=== PATIENT | male | born 1960 | race African-American/Black ===

== ENCOUNTER 2023-05-17 18:35 | Inpatient (IN) | payer OTHER ==
[~2023-05-17] VITALS: Ht 182.9 cm; Wt 127.6 kg
[~2023-05-17 18:35] MED LIST: ASCO500C18 PO; ENZA40CA PO; FERR325T6 PO; FINA-37 PO; FOLI20CA PO; GABA300C PO; HYDR-4001 PO; IBUP-1653 PO; IBUP-2437 PO; MEGE40TA33 PO; MORP15TA54 PO; POTA15TA11 PO; SENN-257 PO; VITA1CAP16 PO
[2023-05-17] MEDS ORDERED: ACETAMINOPHEN 325MG TABLET PO STA (19:39)
[2023-05-17] MEDS ORDERED: CEFTRIAXONE 1GM PREMIX 50 ML IV ONE (19:45)
[2023-05-17 22:13] LABS: HEMATOCRIT. 30.7 % (42.0-52.0); HEMOGLOBIN. 10.2 g/dL (14.0-18.0); MEAN CORPUSCULAR HGB CONC 33.2 g/dL (31.0-37.0); MEAN CORPUSCULAR VOLUME 90.5 fL (80.0-94.0); MEAN PLATELET VOLUME 7.3 fl (7.4-10.4); PLATELET 417 x1000/uL (130-400); RED BLOOD CELL COUNT 3.39 mill/uL (4.7-6.1); RED CELL DISTRIBUTION WIDTH 21.2 % (11.6-14.6); WHITE BLOOD COUNT 9.6 x1000/uL (4.5-11.0)
[2023-05-17 22:19] LABS: DIFFERENTIAL COMMENT 1
[2023-05-17 22:21] LABS: INR 1.1
[2023-05-17 22:35] LABS: PLATELET ESTIMATE INCREASED
[2023-05-17 22:36] LABS: ANISOCYTOSIS 2+
[2023-05-17 22:39] LABS: LACTIC ACID 2.4 mmol/L (0.4-2.0)
[2023-05-17 22:42] LABS: ALANINE AMINOTRANSFERASE 105 IU/L (10-49); ALBUMIN 3.3 g/dL (3.2-4.8); ASPARTATE AMINOTRANSFERASE 240 IU/L (<34); BILIRUBIN TOTAL 27.2 mg/dL (0.1-1.0); CALCIUM 8.5 mg/dL (8.7-10.4); CARBON DIOXIDE 13 mEq/L (21-32); CHLORIDE 101 mEq/L (98-107); GLUCOSE 82 mg/dL (70-105); POTASSIUM 4.6 mEq/L (3.5-5.1); PROTEIN TOTAL 7.9 g/dL (6.0-8.3); SODIUM 136 mEq/L (136-145); TROPONIN I HIGH SENSITIVITY 38 ng/L (3.0-53); UREA NITROGEN BLOOD 79 mg/dL (9-23)
[2023-05-17 22:49] LABS: CREATININE 7.6 mg/dL (0.6-1.3)
[2023-05-17] MEDS: SODIUM CHLORIDE 0.9% 1,000 ML IV ONE (23:41)
[2023-05-17] MEDS: MORPHINE SULFATE 4 MG/ML CPJ (NOT FOR IM USE) IV ONE (23:57)
[2023-05-18] MEDS: CEFTRIAXONE 2GM/50ML (ADDEASE) 50 ML IV ONE (00:43)
[2023-05-18] MEDS: ALBUMIN HUMAN 25GM/100ML (25%) IV ONE (00:51)
[2023-05-18 19:30] VITALS: BP 109/68; PULSE 75; RESP 18; TEMP 97.4
[2023-05-18] MEDS ORDERED: CLONIDINE 0.1MG TABLET PO PRN (19:30)
[2023-05-18] MEDS ORDERED: IPRATROPIUM/ALBUTEROL 0.5-3(2.5)MG/3ML NEB HHN PRN (19:30)
[2023-05-18] MEDS ORDERED: DOCUSATE SODIUM 100MG CAPSULE PO PRN (19:30)
[2023-05-18] MEDS: SODIUM CHLORIDE 0.9% 1,000 ML IV SCH (20:38)
[2023-05-18 21:37] LABS: BG BASE EXCESS -12.6 mmol/L (-2.0-2.0); BG CARBOXYHEMOGLOBIN 0.8 % (0.5-1.5); BG DEOXYHEMOGLOBIN 3.4 % (0.0-5.0); BG FRACTION INSPIRED OXYGEN 21; BG HCO3 ACT 12.6 mmol/L (22.0-26.0); BG METHEMOGLOBIN 0.1 % (0.0-1.5); BG OXYGEN SATURATION 96.6 % (92.0-98.5); BG OXYHEMOGLOBIN 95.7 % (94.0-97.0); BG PCO2 26.9 mmHg (35.0-45.0); BG PH 7.287 (7.350-7.450); BG PO2 94.3 mmHg (75.0-100.0); BG SAMPLE SITE LEFT BRACHIAL; BG TOTAL HEMOGLOBIN 10.4 g/dL (12.0-18.0); BG VENT MODE ROOM AIR
[2023-05-18] MEDS: MORPHINE SULFATE 2 MG/ML CPJ (NOT FOR IM USE) IV PRN (22:14)
[2023-05-19] VITALS (48 sets, daily range): BP systolic 60–132; BP diastolic 27–95; PULSE 70–89; RESP 11–19; TEMP 96
[2023-05-19 08:11] LABS: BILIRUBIN DIRECT 21.7 mg/dL (<=3.0)
[2023-05-19] MEDS ORDERED: NOREPINEPHRINE 8 MG in DEXT 5% WATER 242 ML IV PRN (09:00)
[2023-05-19] MEDS ORDERED: HYDROCODONE/ACETAMINOPHEN 5/325MG TABLET PO PRN (09:00)
[2023-05-19] MEDS ORDERED: NALOXONE HCL 0.4MG/ML VIAL IV PRN (09:00)
[2023-05-19 10:33] LABS: CREATINE KINASE 232 IU/L (46-171)
[2023-05-19] MEDS: PIPERACILLIN/TAZO 3.375G/50ML 50 ML IV SCH (10:35)
[2023-05-19] MEDS: NOREPINEPHRINE 8MG/250ML PMX 250 ML IV PRN (12:25)
[2023-05-19] MEDS: SODIUM BICARBONATE 100 MEQ in DEXTROSE 5% WATER 1,000 ML IV SCH (12:25)
[2023-05-19] MEDS: VANCOMYCIN 1,750 MG in DEXT 5% WATER 500 ML IV NR (12:26)
[2023-05-19] MEDS: SODIUM BICARBONATE 8.4% 1 MEQ/ML 50ML SYR IV NR (12:31)
[2023-05-19 12:37] LABS: HEMATOCRIT. 26.3 % (42.0-52.0); HEMOGLOBIN. 8.8 g/dL (14.0-18.0); MEAN CORPUSCULAR HEMOGLOBIN 29.9 pg (28.0-32.0); MEAN CORPUSCULAR HGB CONC 33.5 g/dL (31.0-37.0); MEAN CORPUSCULAR VOLUME 89.3 fL (80.0-94.0); MEAN PLATELET VOLUME 7.9 fl (7.4-10.4); PLATELET 333 x1000/uL (130-400); RED BLOOD CELL COUNT 2.95 mill/uL (4.7-6.1); RED CELL DISTRIBUTION WIDTH 21.3 % (11.6-14.6); WHITE BLOOD COUNT 6.5 x1000/uL (4.5-11.0)
[2023-05-19 12:38] LABS: DIFFERENTIAL COMMENT 1
[2023-05-19] MEDS: ALBUMIN HUMAN 25GM/100ML (25%) IV NR (12:46)
[2023-05-19] MEDS: OCTREOTIDE 1,000 MCG in SODIUM CHLORIDE 0.9% 98 ML IV SCH (14:07)
[2023-05-19 15:34] LABS: ALANINE AMINOTRANSFERASE 57 IU/L (10-49); ALBUMIN 3.5 g/dL (3.2-4.8); ASPARTATE AMINOTRANSFERASE 125 IU/L (<34); BILIRUBIN TOTAL 26.4 mg/dL (0.1-1.0); CALCIUM 8.2 mg/dL (8.7-10.4); CHLORIDE 107 mEq/L (98-107); GLUCOSE 66 mg/dL (70-105); POTASSIUM 4.4 mEq/L (3.5-5.1); PROTEIN TOTAL 7.1 g/dL (6.0-8.3); SODIUM 137 mEq/L (136-145); UREA NITROGEN BLOOD 84 mg/dL (9-23)
[2023-05-19 15:37] LABS: CARBON DIOXIDE < 10 mEq/L (21-32); CREATININE 7.9 mg/dL (0.6-1.3)
[2023-05-19 17:03] LABS: BG BASE EXCESS -12.5 mmol/L (-2.0-2.0); BG CARBOXYHEMOGLOBIN 1.1 % (0.5-1.5); BG DEOXYHEMOGLOBIN 3.9 % (0.0-5.0); BG FRACTION INSPIRED OXYGEN 21; BG HCO3 ACT 12.5 mmol/L (22.0-26.0); BG METHEMOGLOBIN 0.3 % (0.0-1.5); BG OXYHEMOGLOBIN 94.7 % (94.0-97.0); BG PH 7.301 (7.350-7.450); BG PO2 90.1 mmHg (75.0-100.0); BG SAMPLE SITE RIGHT RADIAL; BG TOTAL HEMOGLOBIN 9.3 g/dL (12.0-18.0); BG VENT MODE ROOM AIR
[2023-05-19] MEDS: ALBUMIN HUMAN 25GM/100ML (25%) IV SCH (17:24)
[2023-05-19 19:31] LABS: PLATELET ESTIMATE NORMAL
[2023-05-20] VITALS (107 sets, daily range): BP systolic 71–126; BP diastolic 54–96; PULSE 83–116; RESP 16–34; TEMP 96–99
[2023-05-20 05:15] LABS: AMMONIA 91 uMol/L (<32)
[2023-05-20 05:25] LABS: HEMATOCRIT. 24.3 % (42.0-52.0); HEMOGLOBIN. 7.9 g/dL (14.0-18.0); MEAN CORPUSCULAR HEMOGLOBIN 29.4 pg (28.0-32.0); MEAN CORPUSCULAR HGB CONC 32.7 g/dL (31.0-37.0); MEAN CORPUSCULAR VOLUME 89.8 fL (80.0-94.0); MEAN PLATELET VOLUME 7.9 fl (7.4-10.4); PLATELET 322 x1000/uL (130-400); RED CELL DISTRIBUTION WIDTH 20.6 % (11.6-14.6); WHITE BLOOD COUNT 6.4 x1000/uL (4.5-11.0)
[2023-05-20 05:36] LABS: DIFFERENTIAL COMMENT 1
[2023-05-20 06:20] LABS: ALANINE AMINOTRANSFERASE 48 IU/L (10-49); ASPARTATE AMINOTRANSFERASE 122 IU/L (<34); BILIRUBIN TOTAL 26.9 mg/dL (0.1-1.0); CALCIUM 7.8 mg/dL (8.7-10.4); CARBON DIOXIDE 14 mEq/L (21-32); CHLORIDE 102 mEq/L (98-107); GLUCOSE 115 mg/dL (70-105); POTASSIUM 3.9 mEq/L (3.5-5.1); PROTEIN TOTAL 7.3 g/dL (6.0-8.3); SODIUM 140 mEq/L (136-145); UREA NITROGEN BLOOD 82 mg/dL (9-23)
[2023-05-20 06:35] LABS: CREATININE 7.8 mg/dL (0.6-1.3)
[2023-05-20 07:55] LABS: BG BASE EXCESS -9.3 mmol/L (-2.0-2.0); BG CARBOXYHEMOGLOBIN 1.3 % (0.5-1.5); BG DEOXYHEMOGLOBIN 6.3 % (0.0-5.0); BG FRACTION INSPIRED OXYGEN 21; BG HCO3 ACT 13.9 mmol/L (22.0-26.0); BG METHEMOGLOBIN 0.3 % (0.0-1.5); BG OXYGEN SATURATION 93.6 % (92.0-98.5); BG OXYHEMOGLOBIN 92.1 % (94.0-97.0); BG PCO2 22.2 mmHg (35.0-45.0); BG PH 7.414 (7.350-7.450); BG PO2 70.5 mmHg (75.0-100.0); BG SAMPLE SITE RIGHT BRACHIAL; BG TOTAL HEMOGLOBIN 8.7 g/dL (12.0-18.0); BG VENT MODE ROOM AIR
[2023-05-20] MEDS ORDERED: PHENYLEPHRINE 50 MG in DEXT 5% WATER 245 ML IV PRN (08:30)
[2023-05-20] MEDS: ALBUMIN HUMAN 12.5GM/50ML (25%) IV NR (08:54)
[2023-05-20] MEDS: SODIUM BICARBONATE 150 MEQ in DEXTROSE 5% WATER 1,000 ML IV SCH (08:55)
[2023-05-20 09:10] LABS: COMPLEMENT C3 137 mg/dL (82-167); COMPLEMENT C4 62 mg/dL (12-38)
[2023-05-20] MEDS: PROPOFOL 10MG/ML 100ML 100 ML IV PRN (09:28)
[2023-05-20 09:45] LABS: AMMONIA 104 uMol/L (<32)
[2023-05-20 10:00] LABS: BG BASE EXCESS -9.6 mmol/L (-2.0-2.0); BG CARBOXYHEMOGLOBIN 1.8 % (0.5-1.5); BG DEOXYHEMOGLOBIN 0.3 % (0.0-5.0); BG FRACTION INSPIRED OXYGEN 100; BG HCO3 ACT 14.3 mmol/L (22.0-26.0); BG METHEMOGLOBIN 0.3 % (0.0-1.5); BG OXYGEN SATURATION 99.7 % (92.0-98.5); BG OXYHEMOGLOBIN 97.6 % (94.0-97.0); BG PCO2 24.9 mmHg (35.0-45.0); BG PH 7.378 (7.350-7.450); BG PO2 411.8 mmHg (75.0-100.0); BG SAMPLE SITE RIGHT BRACHIAL; BG TOTAL HEMOGLOBIN 8.3 g/dL (12.0-18.0); BG VENT MODE VENT - AC
[2023-05-20] MEDS: LACTULOSE 20G/30ML UDC PO SCH (13:56)
[2023-05-20 15:43] LABS: NUCLEATED RED BLOOD CELLS 3 /100 WBC
[2023-05-20 15:44] LABS: ANISOCYTOSIS 2+; PLATELET ESTIMATE NORMAL; TARGET CELLS 1+
[2023-05-20 16:56] LABS: *AMPHETAMINES SCREEN URINE NEGATIVE (NEGATIVE); *BARBITURATES SCREEN URINE NEGATIVE (NEGATIVE); *BENZODIAZEPINES SCREEN URINE NEGATIVE (NEGATIVE); *COCAINE SCREEN URINE NEGATIVE (NEGATIVE); CANNABINOID URINE SCREEN NEGATIVE (NEGATIVE); ECSTASY MDMA SCREEN URINE NEGATIVE (NEGATIVE); METHADONE URINE SCREEN Neg (NEGATIVE); OPIATES URINE SCREEN PRESUMPTIVE POSITIVE (NEGATIVE); PHENCYCLIDINE URINE SCREEN NEGATIVE (NEGATIVE)
[2023-05-20] MEDS: IPRATROPIUM/ALBUTEROL 0.5-3(2.5)MG/3ML NEB HHN SCH (19:52)
[2023-05-21] VITALS (112 sets, daily range): BP systolic 55–120; BP diastolic 40–103; PULSE 103–133; RESP 16–31; TEMP 97.8–99; O2SAT 100
[2023-05-21] MEDS: PHENYLEPHRINE 50MG/250ML PMX IV PRN (01:48)
[2023-05-21 04:33] LABS: HEMATOCRIT. 23.3 % (42.0-52.0); HEMOGLOBIN. 7.7 g/dL (14.0-18.0); MEAN CORPUSCULAR HEMOGLOBIN 29.7 pg (28.0-32.0); MEAN CORPUSCULAR HGB CONC 33.1 g/dL (31.0-37.0); MEAN CORPUSCULAR VOLUME 89.9 fL (80.0-94.0); MEAN PLATELET VOLUME 7.8 fl (7.4-10.4); PLATELET 327 x1000/uL (130-400); RED CELL DISTRIBUTION WIDTH 21.2 % (11.6-14.6)
[2023-05-21 04:57] LABS: DIFFERENTIAL COMMENT 1
[2023-05-21 06:27] LABS: AMMONIA 118 uMol/L (<32)
[2023-05-21 07:56] LABS: CARBON DIOXIDE 13 mEq/L (21-32); CHLORIDE 101 mEq/L (98-107); GLUCOSE 122 mg/dL (70-105); POTASSIUM 3.3 mEq/L (3.5-5.1); SODIUM 141 mEq/L (136-145); UREA NITROGEN BLOOD 74 mg/dL (9-23)
[2023-05-21 07:57] LABS: ALBUMIN 3.6 g/dL (3.2-4.8); ASPARTATE AMINOTRANSFERASE 201 IU/L (<34); BILIRUBIN TOTAL 26.1 mg/dL (0.1-1.0); CREATININE 7.6 mg/dL (0.6-1.3); PROTEIN TOTAL 6.5 g/dL (6.0-8.3)
[2023-05-21 07:58] LABS: ALANINE AMINOTRANSFERASE 57 IU/L (10-49); INDEX ICTERIC 3 (1-4)
[2023-05-21 08:01] LABS: TRIGLYCERIDE 383 mg/dL (0-150)
[2023-05-21] MEDS: VASOPRESSIN 20 UNIT in SODIUM CHLORIDE 0.9% 99 ML IV PRN (08:18)
[2023-05-21] MEDS: ALBUMIN HUMAN 12.5GM/50ML (25%) IV NR (08:19)
[2023-05-21 08:26] LABS: BILIRUBIN DIRECT 20.2 mg/dL (<=3.0)
[2023-05-21 09:34] LABS: BG BASE EXCESS -9.9 mmol/L (-2.0-2.0); BG CARBOXYHEMOGLOBIN 1.3 % (0.5-1.5); BG DEOXYHEMOGLOBIN 1.3 % (0.0-5.0); BG FRACTION INSPIRED OXYGEN 40; BG METHEMOGLOBIN 0.2 % (0.0-1.5); BG OXYGEN SATURATION 98.7 % (92.0-98.5); BG OXYHEMOGLOBIN 97.2 % (94.0-97.0); BG PCO2 24.2 mmHg (35.0-45.0); BG PH 7.379 (7.350-7.450); BG PO2 134.1 mmHg (75.0-100.0); BG SAMPLE SITE RIGHT BRACHIAL; BG TOTAL HEMOGLOBIN 8.4 g/dL (12.0-18.0); BG VENT MODE VENT - AC
[2023-05-21] MEDS: VANCOMYCIN 750MG PREMIX 150 ML IV NR (11:20)
[2023-05-21] MEDS ORDERED: MIDAZOLAM HCL 2 MG/2 ML VIAL IV PRN (12:00)
[2023-05-21] MEDS: PHENYLEPHRINE 100 MG in DEXT 5% WATER 240 ML IV PRN (12:41)
[2023-05-21] MEDS: FENTANYL 2500MCG/250ML PMX 250 ML IV PRN (12:42)
[2023-05-21 13:10] LABS: ANTI-NUCLEAR ANTIBODIES DIRECT Negative (Negative)
[2023-05-21] MEDS: PANTOPRAZOLE SODIUM 40 MG/VIAL IV SCH (13:15)
[2023-05-21] MEDS: ALBUMIN HUMAN 12.5G/250ML (5%) IV NR (13:16)
[2023-05-21] MEDS: LACTULOSE 20G/30ML UDC PO SCH (14:05)
[2023-05-21 17:12] LABS: CLARITY URINE TURBID (CLEAR); COLOR URINE DARK YELLOW (YELLOW); GLUCOSE URINE TRACE (NEGATIVE); KETONES URINE NEGATIVE (NEGATIVE); LEUKOCYTE ESTERASE URINE 2+ (NEGATIVE); NITRITE URINE POSITIVE (NEGATIVE); OCCULT BLOOD URINE 2+ (NEGATIVE); PROTEIN URINE 3+ (NEGATIVE); SPECIFIC GRAVITY URINE 1.027 (1.005-1.030); UROBILINOGEN URINE 0.2 E.U./dL (0.2-1.0)
[2023-05-21] MEDS: LACTULOSE ENEMA 1,000ML BOTTLE PR SCH (18:02)
[2023-05-21] MEDS: DOXYCYCLINE 100 MG in DEXT 5% WATER 100 ML IV SCH (18:04)
[2023-05-21 19:47] LABS: RBC URINE TNTC /hpf (0-2); SQUAMOUS EPITHELIAL CELL URINE FEW /lpf (RARE/1+)
[2023-05-21 19:48] LABS: BACTERIA URINE 4+
[2023-05-21] MEDS: ENOXAPARIN 100MG/ML SYR SUBCUT SCH (20:46)
[2023-05-21 22:12] LABS: PHOSPHORUS 5.6 mg/dL (2.5-4.9); POTASSIUM 4.1 mEq/L (3.5-5.1)
[2023-05-21 22:18] LABS: TROPONIN I HIGH SENSITIVITY 5210 ng/L (3.0-53)
[2023-05-22] VITALS (101 sets, daily range): BP systolic 75–125; BP diastolic 44–86; PULSE 100–124; RESP 14–29; TEMP 96.5–99.6
[2023-05-22 06:16] LABS: HEMOGLOBIN. 7.2 g/dL (14.0-18.0); MEAN CORPUSCULAR HEMOGLOBIN 29.3 pg (28.0-32.0); MEAN CORPUSCULAR HGB CONC 31.5 g/dL (31.0-37.0); MEAN PLATELET VOLUME 8.1 fl (7.4-10.4); PLATELET 246 x1000/uL (130-400); RED BLOOD CELL COUNT 2.47 mill/uL (4.7-6.1); RED CELL DISTRIBUTION WIDTH 21.3 % (11.6-14.6)
[2023-05-22 06:27] LABS: AMMONIA 117 uMol/L (<32)
[2023-05-22 06:39] LABS: DIFFERENTIAL COMMENT 1
[2023-05-22 06:55] LABS: ALANINE AMINOTRANSFERASE 59 IU/L (10-49); ALBUMIN 3.3 g/dL (3.2-4.8); ASPARTATE AMINOTRANSFERASE 211 IU/L (<34); BILIRUBIN DIRECT 20.9 mg/dL (<=3.0); BILIRUBIN TOTAL 27.1 mg/dL (0.1-1.0); CALCIUM 6.8 mg/dL (8.7-10.4); CHLORIDE 94 mEq/L (98-107); GLUCOSE 137 mg/dL (70-105); POTASSIUM 3.5 mEq/L (3.5-5.1); PROTEIN TOTAL 6.4 g/dL (6.0-8.3); SODIUM 136 mEq/L (136-145); UREA NITROGEN BLOOD 77 mg/dL (9-23)
[2023-05-22 07:05] LABS: ANISOCYTOSIS 2+; NUCLEATED RED BLOOD CELLS 6 /100 WBC; PLATELET ESTIMATE NORMAL; TARGET CELLS 2+
[2023-05-22 07:18] LABS: CARBON DIOXIDE < 10 mEq/L (21-32)
[2023-05-22] MEDS: SODIUM BICARBONATE 8.4% 1 MEQ/ML 50ML SYR IV NR (08:07)
[2023-05-22 11:06] LABS: ANISOCYTOSIS 3+; NUCLEATED RED BLOOD CELLS 15 /100 WBC; PLATELET ESTIMATE NORMAL
[2023-05-22 11:07] LABS: TARGET CELLS 1+
[2023-05-22 12:55] LABS: INR 1.5; PROTHROMBIN TIME 15.3 sec (9.6-11.0)
[2023-05-22 14:08] LABS: BG BASE EXCESS -11.9 mmol/L (-2.0-2.0); BG CARBOXYHEMOGLOBIN 1.3 % (0.5-1.5); BG DEOXYHEMOGLOBIN 7.2 % (0.0-5.0); BG HCO3 ACT 14.2 mmol/L (22.0-26.0); BG METHEMOGLOBIN 0.3 % (0.0-1.5); BG OXYGEN SATURATION 92.7 % (92.0-98.5); BG OXYHEMOGLOBIN 91.2 % (94.0-97.0); BG PCO2 33.1 mmHg (35.0-45.0); BG PH 7.251 (7.350-7.450); BG PO2 76.2 mmHg (75.0-100.0); BG SAMPLE SITE ALINE; BG TOTAL HEMOGLOBIN 8.2 g/dL (12.0-18.0); BG VENT MODE VENT - AC
[2023-05-23] VITALS (101 sets, daily range): BP systolic 66–157; BP diastolic 51–124; PULSE 105–127; RESP 17–31; TEMP 98–102.7
[2023-05-23 06:26] LABS: HEMATOCRIT. 22.1 % (42.0-52.0); HEMOGLOBIN. 7.2 g/dL (14.0-18.0); MEAN CORPUSCULAR HEMOGLOBIN 29.6 pg (28.0-32.0); MEAN CORPUSCULAR HGB CONC 32.5 g/dL (31.0-37.0); MEAN CORPUSCULAR VOLUME 91.1 fL (80.0-94.0); MEAN PLATELET VOLUME 8.5 fl (7.4-10.4); PLATELET 183 x1000/uL (130-400); RED BLOOD CELL COUNT 2.43 mill/uL (4.7-6.1); RED CELL DISTRIBUTION WIDTH 20.9 % (11.6-14.6)
[2023-05-23 06:43] LABS: AMMONIA 88 uMol/L (<32)
[2023-05-23 06:51] LABS: DIFFERENTIAL COMMENT 1
[2023-05-23] MEDS: FUROSEMIDE 40MG/4ML VIAL IVP SCH (07:53)
[2023-05-23 08:05] LABS: ALANINE AMINOTRANSFERASE 60 IU/L (10-49); ALBUMIN 3.2 g/dL (3.2-4.8); ASPARTATE AMINOTRANSFERASE 187 IU/L (<34); BILIRUBIN TOTAL 27.8 mg/dL (0.1-1.0); CALCIUM 6.7 mg/dL (8.7-10.4); CARBON DIOXIDE 14 mEq/L (21-32); CHLORIDE 89 mEq/L (98-107); GLUCOSE 124 mg/dL (70-105); POTASSIUM 3.4 mEq/L (3.5-5.1); PROTEIN TOTAL 6.5 g/dL (6.0-8.3); SODIUM 134 mEq/L (136-145); UREA NITROGEN BLOOD 77 mg/dL (9-23)
[2023-05-23 08:13] LABS: CREATININE 7.6 mg/dL (0.6-1.3)
[2023-05-23 08:37] LABS: BILIRUBIN DIRECT 20.8 mg/dL (<=3.0)
[2023-05-23] MEDS: ALBUMIN HUMAN 12.5GM/50ML (25%) IV SCH (08:45)
[2023-05-23 09:43] LABS: BG BASE EXCESS -8.6 mmol/L (-2.0-2.0); BG CARBOXYHEMOGLOBIN 1.5 % (0.5-1.5); BG DEOXYHEMOGLOBIN 5.5 % (0.0-5.0); BG FRACTION INSPIRED OXYGEN 40; BG HCO3 ACT 15.3 mmol/L (22.0-26.0); BG METHEMOGLOBIN 0.3 % (0.0-1.5); BG OXYGEN SATURATION 94.4 % (92.0-98.5); BG OXYHEMOGLOBIN 92.7 % (94.0-97.0); BG PCO2 25.2 mmHg (35.0-45.0); BG PO2 76.1 mmHg (75.0-100.0); BG SAMPLE SITE ALINE; BG TOTAL HEMOGLOBIN 7.3 g/dL (12.0-18.0); BG TOTAL RESPIRATORY RATE 30 b/min; BG VENT MODE VENT - AC
[2023-05-23] MEDS: NOREPINEPHRINE 32 MG in DEXT 5% WATER 218 ML IV PRN (12:40)
[2023-05-23 14:34] LABS: NUCLEATED RED BLOOD CELLS 39 /100 WBC
[2023-05-23 14:35] LABS: ANISOCYTOSIS 2+; PLATELET ESTIMATE NORMAL; TARGET CELLS 1+
[2023-05-23 14:36] LABS: HYPOCHROMASIA 1+
[2023-05-23] MEDS: MIDODRINE HCL 5MG TABLET PO SCH (17:12)
[2023-05-23] MEDS: MEROPENEM 1,000 MG in SODIUM CHLORIDE 0.9% 100 ML IV SCH (17:34)
[2023-05-23] MEDS: ACETAMINOPHEN 325MG TABLET PO PRN (21:36)
[2023-05-24] VITALS (91 sets, daily range): BP systolic 54–130; BP diastolic 20–96; PULSE 95–126; RESP 16–33; TEMP 97.5–102.5
[2023-05-24 05:23] LABS: AMMONIA 86 uMol/L (<32); MEAN CORPUSCULAR HGB CONC 32.6 g/dL (31.0-37.0); MEAN PLATELET VOLUME 8.6 fl (7.4-10.4); PLATELET 153 x1000/uL (130-400); RED BLOOD CELL COUNT 1.96 mill/uL (4.7-6.1)
[2023-05-24 06:14] LABS: ALANINE AMINOTRANSFERASE 54 IU/L (10-49); ALBUMIN 3.2 g/dL (3.2-4.8); ASPARTATE AMINOTRANSFERASE 141 IU/L (<34); BILIRUBIN DIRECT 20.4 mg/dL (<=3.0); BILIRUBIN TOTAL 26.2 mg/dL (0.1-1.0); CALCIUM 6.4 mg/dL (8.7-10.4); CARBON DIOXIDE 12 mEq/L (21-32); CHLORIDE 85 mEq/L (98-107); GLUCOSE 117 mg/dL (70-105); POTASSIUM 3.8 mEq/L (3.5-5.1); PROTEIN TOTAL 6.5 g/dL (6.0-8.3); SODIUM 130 mEq/L (136-145); UREA NITROGEN BLOOD 79 mg/dL (9-23)
[2023-05-24 06:15] LABS: CREATININE 7.8 mg/dL (0.6-1.3)
[2023-05-24 06:28] LABS: DIFFERENTIAL COMMENT 1; HEMATOCRIT. 18.1 % (42.0-52.0); HEMOGLOBIN. 5.9 g/dL (14.0-18.0)
[2023-05-24] MEDS: ALBUMIN HUMAN 12.5G/250ML (5%) IV NR (07:33)
[2023-05-24] MEDS: SODIUM BICARBONATE 8.4% 1 MEQ/ML 50ML SYR IV NR (08:41)
[2023-05-24 09:01] LABS: BG BASE EXCESS -11.6 mmol/L (-2.0-2.0); BG CARBOXYHEMOGLOBIN 1.9 % (0.5-1.5); BG DEOXYHEMOGLOBIN 7.6 % (0.0-5.0); BG FRACTION INSPIRED OXYGEN 40; BG HCO3 ACT 14.6 mmol/L (22.0-26.0); BG METHEMOGLOBIN 0.4 % (0.0-1.5); BG OXYGEN SATURATION 92.2 % (92.0-98.5); BG OXYHEMOGLOBIN 90.1 % (94.0-97.0); BG PCO2 34.3 mmHg (35.0-45.0); BG PH 7.247 (7.350-7.450); BG PO2 77.9 mmHg (75.0-100.0); BG SAMPLE SITE ALINE; BG TOTAL HEMOGLOBIN 5.8 g/dL (12.0-18.0); BG VENT MODE VENT - AC
[2023-05-24] MEDS ORDERED: SODIUM BICARBONATE 8.4% 1 MEQ/ML 50ML SYR IV NR (09:30)
[2023-05-24 11:35] LABS: INR 1.3
[2023-05-24 12:29] LABS: ANISOCYTOSIS 1+; HYPOCHROMASIA 1+; NUCLEATED RED BLOOD CELLS 41 /100 WBC; PLATELET ESTIMATE NORMAL; TARGET CELLS 1+
[2023-05-25] VITALS (89 sets, daily range): BP systolic 76–117; BP diastolic 63–95; PULSE 99–118; RESP 25–37; TEMP 96.9–100.5
[2023-05-25 05:06] LABS: AMMONIA 73 uMol/L (<32)
[2023-05-25 08:02] LABS: POTASSIUM 3.6 mEq/L (3.5-5.1); SODIUM 130 mEq/L (136-145)
[2023-05-25 08:03] LABS: CALCIUM 6.4 mg/dL (8.7-10.4); CARBON DIOXIDE 13 mEq/L (21-32); CHLORIDE 81 mEq/L (98-107); GLUCOSE 130 mg/dL (70-105); PROTEIN TOTAL 6.2 g/dL (6.0-8.3)
[2023-05-25 08:04] LABS: ALBUMIN 3.3 g/dL (3.2-4.8); ASPARTATE AMINOTRANSFERASE 108 IU/L (<34); BILIRUBIN TOTAL 24.4 mg/dL (0.1-1.0)
[2023-05-25 08:07] LABS: ALANINE AMINOTRANSFERASE 51 IU/L (10-49)
[2023-05-25 08:09] LABS: CREATININE 7.7 mg/dL (0.6-1.3)
[2023-05-25 08:10] LABS: UREA NITROGEN BLOOD 74 mg/dL (9-23)
[2023-05-25 08:33] LABS: HEMATOCRIT. 29.8 % (42.0-52.0); HEMOGLOBIN. 10.1 g/dL (14.0-18.0); MEAN CORPUSCULAR HEMOGLOBIN 30.6 pg (28.0-32.0); MEAN CORPUSCULAR HGB CONC 34.1 g/dL (31.0-37.0); MEAN CORPUSCULAR VOLUME 89.8 fL (80.0-94.0); MEAN PLATELET VOLUME 8.3 fl (7.4-10.4); PLATELET 64 x1000/uL (130-400); RED BLOOD CELL COUNT 3.31 mill/uL (4.7-6.1); RED CELL DISTRIBUTION WIDTH 17.2 % (11.6-14.6)
[2023-05-25 08:39] LABS: DIFFERENTIAL COMMENT 1
[2023-05-25 09:01] LABS: BG BASE EXCESS -4.4 mmol/L (-2.0-2.0); BG CARBOXYHEMOGLOBIN 0.3 % (0.5-1.5); BG DEOXYHEMOGLOBIN 2.1 % (0.0-5.0); BG FRACTION INSPIRED OXYGEN 40; BG HCO3 ACT 18.1 mmol/L (22.0-26.0); BG OXYGEN SATURATION 97.9 % (92.0-98.5); BG OXYHEMOGLOBIN 97.6 % (94.0-97.0); BG PCO2 25.4 mmHg (35.0-45.0); BG PH 7.471 (7.350-7.450); BG PO2 113.1 mmHg (75.0-100.0); BG SAMPLE SITE ALINE; BG TOTAL HEMOGLOBIN 10.3 g/dL (12.0-18.0); BG VENT MODE VENT - AC
[2023-05-25 09:03] LABS: BILIRUBIN DIRECT 19.2 mg/dL (<=3.0)
[2023-05-25] MEDS: METOCLOPRAMIDE HCL 10MG/2ML VIAL IV SCH (12:50)
[2023-05-25 17:50] LABS: ANISOCYTOSIS 1+; PLATELET ESTIMATE DECREASED
[2023-05-25 21:09] LABS: HEPATITIS A AB IGM NEGATIVE (Negative); HEPATITIS B CORE AB IGM NEGATIVE (Negative); HEPATITIS B SURFACE ANTIGEN NEGATIVE (Negative); HEPATITIS C AB NON REACTIVE (Neg) (Negative)
[2023-05-26] VITALS (105 sets, daily range): BP systolic 77–128; BP diastolic 6–97; PULSE 79–125; RESP 27–33; TEMP 97.2–100.2
[2023-05-26 07:08] LABS: HEMATOCRIT. 29.8 % (42.0-52.0); HEMOGLOBIN. 10.1 g/dL (14.0-18.0); MEAN CORPUSCULAR HEMOGLOBIN 30.6 pg (28.0-32.0); MEAN CORPUSCULAR HGB CONC 33.9 g/dL (31.0-37.0); MEAN CORPUSCULAR VOLUME 90.1 fL (80.0-94.0); RED BLOOD CELL COUNT 3.31 mill/uL (4.7-6.1); RED CELL DISTRIBUTION WIDTH 16.8 % (11.6-14.6)
[2023-05-26 07:13] LABS: DIFFERENTIAL COMMENT 1
[2023-05-26 07:49] LABS: CALCIUM 6.2 mg/dL (8.7-10.4); POTASSIUM 3.3 mEq/L (3.5-5.1)
[2023-05-26 07:56] LABS: AMMONIA 59 uMol/L (<32)
[2023-05-26 09:41] LABS: BG BASE EXCESS -2.4 mmol/L (-2.0-2.0); BG CARBOXYHEMOGLOBIN 0.2 % (0.5-1.5); BG DEOXYHEMOGLOBIN 1.9 % (0.0-5.0); BG FRACTION INSPIRED OXYGEN 40; BG METHEMOGLOBIN 0.3 % (0.0-1.5); BG OXYGEN SATURATION 98.1 % (92.0-98.5); BG OXYHEMOGLOBIN 97.6 % (94.0-97.0); BG PCO2 23.2 mmHg (35.0-45.0); BG PH 7.531 (7.350-7.450); BG PO2 132.1 mmHg (75.0-100.0); BG SAMPLE SITE ALINE; BG TOTAL HEMOGLOBIN 10.4 g/dL (12.0-18.0); BG VENT MODE VENT - AC
[2023-05-26 10:39] LABS: ANISOCYTOSIS 2+; NUCLEATED RED BLOOD CELLS 22 /100 WBC
[2023-05-26 10:40] LABS: PLATELET ESTIMATE MARKEDLY DECREASED; TARGET CELLS 2+
[2023-05-26 10:44] LABS: MEAN PLATELET VOLUME 8.6 fl (7.4-10.4); PLATELET 38 x1000/uL (130-400)
[2023-05-26] MEDS: BLOOD SUGAR DIAGNOSTIC STRIP TEST SCH (12:00)
[2023-05-26] MEDS: TOTAL PARENTERAL NUTRITION 1,500 ML IV SCH (21:45)
[2023-05-27] VITALS (115 sets, daily range): BP systolic 68–129; BP diastolic 41–99; PULSE 86–116; RESP 10–32; TEMP 98.1–99.8
[2023-05-27 04:45] LABS: HEMATOCRIT. 29.9 % (42.0-52.0); MEAN CORPUSCULAR HEMOGLOBIN 30.3 pg (28.0-32.0); MEAN CORPUSCULAR HGB CONC 33.4 g/dL (31.0-37.0); MEAN CORPUSCULAR VOLUME 90.9 fL (80.0-94.0); MEAN PLATELET VOLUME 8.8 fl (7.4-10.4); RED BLOOD CELL COUNT 3.29 mill/uL (4.7-6.1); RED CELL DISTRIBUTION WIDTH 16.6 % (11.6-14.6); WHITE BLOOD COUNT 7.8 x1000/uL (4.5-11.0)
[2023-05-27 04:59] LABS: ALANINE AMINOTRANSFERASE 29 IU/L (10-49); ALBUMIN 2.5 g/dL (3.2-4.8); ASPARTATE AMINOTRANSFERASE 71 IU/L (<34); BILIRUBIN DIRECT 13.8 mg/dL (<=3.0); BILIRUBIN TOTAL 17.1 mg/dL (0.1-1.0); CALCIUM 6.3 mg/dL (8.7-10.4); CARBON DIOXIDE 22 mEq/L (21-32); CHLORIDE 89 mEq/L (98-107); CREATININE 4.9 mg/dL (0.6-1.3); GLUCOSE 156 mg/dL (70-105); PHOSPHORUS 3.4 mg/dL (2.5-4.9); POTASSIUM 3.4 mEq/L (3.5-5.1); PROTEIN TOTAL 5.5 g/dL (6.0-8.3); SODIUM 132 mEq/L (136-145); UREA NITROGEN BLOOD 50 mg/dL (9-23)
[2023-05-27 05:21] LABS: DIFFERENTIAL COMMENT 1
[2023-05-27 05:22] LABS: PLATELET 27 x1000/uL (130-400)
[2023-05-27 06:04] LABS: NUCLEATED RED BLOOD CELLS 12 /100 WBC; PLATELET ESTIMATE DECREASED
[2023-05-27] MEDS: KCL 20MEQ/100ML PREMIX 100 ML IV NR (09:18)
[2023-05-27 10:03] LABS: INR 1.3; PROTHROMBIN TIME 13.5 sec (9.6-11.0)
[2023-05-27 10:11] LABS: D-DIMER 3.23 mg/L FEU (<0.50)
[2023-05-27] MEDS: MAGNESIUM 2 G PREMIX 50 ML IV NR (11:03)
[2023-05-27 15:09] LABS: BG BASE EXCESS 3.8 mmol/L (-2.0-2.0); BG CARBOXYHEMOGLOBIN 0.3 % (0.5-1.5); BG DEOXYHEMOGLOBIN 3.7 % (0.0-5.0); BG FRACTION INSPIRED OXYGEN 40; BG METHEMOGLOBIN 0.1 % (0.0-1.5); BG OXYGEN SATURATION 96.3 % (92.0-98.5); BG OXYHEMOGLOBIN 95.9 % (94.0-97.0); BG PCO2 25.9 mmHg (35.0-45.0); BG PH 7.602 (7.350-7.450); BG PO2 82.9 mmHg (75.0-100.0); BG SAMPLE SITE ALINE; BG TOTAL HEMOGLOBIN 9.2 g/dL (12.0-18.0); BG VENT MODE VENT - AC
[2023-05-27] MEDS ORDERED: FAT EMULSIONS 500 ML IV SCH (21:00)
[2023-05-28] VITALS (116 sets, daily range): BP systolic 82–149; BP diastolic 52–115; PULSE 91–130; RESP 11–32; TEMP 97.9–100.9
[2023-05-28 05:09] LABS: AMMONIA 19 uMol/L (<32)
[2023-05-28 06:03] LABS: HEMATOCRIT. 29.6 % (42.0-52.0); HEMOGLOBIN. 9.8 g/dL (14.0-18.0); MEAN CORPUSCULAR HEMOGLOBIN 30.5 pg (28.0-32.0); MEAN CORPUSCULAR HGB CONC 32.9 g/dL (31.0-37.0); MEAN CORPUSCULAR VOLUME 92.5 fL (80.0-94.0); MEAN PLATELET VOLUME 7.2 fl (7.4-10.4); RED CELL DISTRIBUTION WIDTH 16.8 % (11.6-14.6)
[2023-05-28 06:36] LABS: CALCIUM 6.8 mg/dL (8.7-10.4); CARBON DIOXIDE 29 mEq/L (21-32); CHLORIDE 89 mEq/L (98-107); GLUCOSE 151 mg/dL (70-105); PHOSPHORUS 2.6 mg/dL (2.5-4.9); POTASSIUM 3.3 mEq/L (3.5-5.1); SODIUM 128 mEq/L (136-145); UREA NITROGEN BLOOD 50 mg/dL (9-23)
[2023-05-28 08:02] LABS: DIFFERENTIAL COMMENT 1; PLATELET 12 x1000/uL (130-400)
[2023-05-28 12:25] LABS: NUCLEATED RED BLOOD CELLS 23 /100 WBC; PLATELET ESTIMATE MARKEDLY DECREASED
[2023-05-28 12:26] LABS: ANISOCYTOSIS 3+
[2023-05-28 12:44] LABS: BG BASE EXCESS 1.9 mmol/L (-2.0-2.0); BG CARBOXYHEMOGLOBIN 0.3 % (0.5-1.5); BG DEOXYHEMOGLOBIN 4.7 % (0.0-5.0); BG FRACTION INSPIRED OXYGEN 50; BG METHEMOGLOBIN 0.3 % (0.0-1.5); BG OXYGEN SATURATION 95.3 % (92.0-98.5); BG OXYHEMOGLOBIN 94.7 % (94.0-97.0); BG PCO2 38.7 mmHg (35.0-45.0); BG PH 7.445 (7.350-7.450); BG SAMPLE SITE RIGHT RADIAL; BG TOTAL HEMOGLOBIN 10.5 g/dL (12.0-18.0); BG VENT MODE VENT - AC
[2023-05-28] MEDS: TOTAL PARENTERAL NUTRITION 1,500 ML IV SCH (21:05)
[2023-05-29] VITALS (106 sets, daily range): BP systolic 94–145; BP diastolic 69–107; PULSE 90–116; RESP 10–34; TEMP 98–98.8
[2023-05-29 05:51] LABS: AMMONIA < 10 uMol/L (<32)
[2023-05-29 05:57] LABS: HEMATOCRIT. 27.1 % (42.0-52.0); HEMOGLOBIN. 8.9 g/dL (14.0-18.0); MEAN CORPUSCULAR HEMOGLOBIN 30.7 pg (28.0-32.0); MEAN PLATELET VOLUME 9.9 fl (7.4-10.4); RED BLOOD CELL COUNT 2.91 mill/uL (4.7-6.1); RED CELL DISTRIBUTION WIDTH 17.3 % (11.6-14.6)
[2023-05-29 06:11] LABS: CALCIUM 7.4 mg/dL (8.7-10.4); CARBON DIOXIDE 28 mEq/L (21-32); CHLORIDE 92 mEq/L (98-107); CREATININE 4.5 mg/dL (0.6-1.3); GLUCOSE 135 mg/dL (70-105); PHOSPHORUS 2.3 mg/dL (2.5-4.9); POTASSIUM 3.6 mEq/L (3.5-5.1); SODIUM 131 mEq/L (136-145); UREA NITROGEN BLOOD 47 mg/dL (9-23)
[2023-05-29 06:24] LABS: DIFFERENTIAL COMMENT 1
[2023-05-29] MEDS: POTASSIUM PHOS,M-BASIC-D-BASIC 15 MMOL in DEXT 5% WATER 245 ML IV NR (09:41)
[2023-05-29 10:56] LABS: BG BASE EXCESS 1.9 mmol/L (-2.0-2.0); BG CARBOXYHEMOGLOBIN 0.3 % (0.5-1.5); BG DEOXYHEMOGLOBIN 4.8 % (0.0-5.0); BG FRACTION INSPIRED OXYGEN 50; BG HCO3 ACT 24.1 mmol/L (22.0-26.0); BG METHEMOGLOBIN 0.9 % (0.0-1.5); BG OXYGEN SATURATION 95.1 % (92.0-98.5); BG PCO2 29.2 mmHg (35.0-45.0); BG PH 7.535 (7.350-7.450); BG SAMPLE SITE ALINE; BG TOTAL HEMOGLOBIN 9.2 g/dL (12.0-18.0); BG VENT MODE VENT - AC
[2023-05-29 11:52] LABS: NUCLEATED RED BLOOD CELLS 20 /100 WBC
[2023-05-29 11:53] LABS: ANISOCYTOSIS 1+; GIANT PLATELETS FEW; PLATELET ESTIMATE MARKEDLY DECREASED
[2023-05-29 12:01] LABS: PLATELET 33 x1000/uL (130-400)
[2023-05-29 12:13] LABS: LACTATE DEHYDROGENASE 463 IU/L (120-246)
[2023-05-29] MEDS: LORAZEPAM 2MG/ML INJ IV NR (17:21)
[2023-05-29] MEDS: IPRATROPIUM/ALBUTEROL 0.5-3(2.5)MG/3ML NEB HHN SCH (18:32)
[2023-05-30] VITALS (110 sets, daily range): BP systolic 31–155; BP diastolic 19–133; PULSE 98–133; RESP 0–34; TEMP 97.3–98.7
[2023-05-30] MEDS: LORAZEPAM 2MG/ML INJ IV NR (02:24)
[2023-05-30 04:31] LABS: HEMATOCRIT. 25.8 % (42.0-52.0); HEMOGLOBIN. 8.6 g/dL (14.0-18.0); MEAN CORPUSCULAR HEMOGLOBIN 30.9 pg (28.0-32.0); MEAN CORPUSCULAR HGB CONC 33.3 g/dL (31.0-37.0); MEAN CORPUSCULAR VOLUME 92.9 fL (80.0-94.0); MEAN PLATELET VOLUME 10.5 fl (7.4-10.4); RED BLOOD CELL COUNT 2.78 mill/uL (4.7-6.1); RED CELL DISTRIBUTION WIDTH 17.1 % (11.6-14.6)
[2023-05-30 04:42] LABS: AMMONIA < 17 uMol/L (<32); CALCIUM 7.5 mg/dL (8.7-10.4); CARBON DIOXIDE 27 mEq/L (21-32); CHLORIDE 91 mEq/L (98-107); CREATININE 4.5 mg/dL (0.6-1.3); GLUCOSE 131 mg/dL (70-105); PHOSPHORUS 2.6 mg/dL (2.5-4.9); POTASSIUM 3.8 mEq/L (3.5-5.1); SODIUM 128 mEq/L (136-145); UREA NITROGEN BLOOD 55 mg/dL (9-23)
[2023-05-30 04:59] LABS: DIFFERENTIAL COMMENT 1
[2023-05-30 09:05] LABS: BG BASE EXCESS 4.2 mmol/L (-2.0-2.0); BG CARBOXYHEMOGLOBIN 0.3 % (0.5-1.5); BG DEOXYHEMOGLOBIN 1.8 % (0.0-5.0); BG FRACTION INSPIRED OXYGEN 50; BG HCO3 ACT 26.4 mmol/L (22.0-26.0); BG METHEMOGLOBIN 0.3 % (0.0-1.5); BG OXYGEN SATURATION 98.2 % (92.0-98.5); BG OXYHEMOGLOBIN 97.6 % (94.0-97.0); BG PCO2 30.4 mmHg (35.0-45.0); BG PH 7.557 (7.350-7.450); BG PO2 105.6 mmHg (75.0-100.0); BG SAMPLE SITE ALINE; BG TOTAL HEMOGLOBIN 8.5 g/dL (12.0-18.0); BG VENT MODE VENT - AC
[2023-05-30 11:42] LABS: NUCLEATED RED BLOOD CELLS 18 /100 WBC
[2023-05-30 11:44] LABS: ANISOCYTOSIS 1+; PLATELET ESTIMATE MARKEDLY DECREASED; TARGET CELLS 1+
[2023-05-30 11:45] LABS: PLATELET 41 x1000/uL (130-400)
[2023-05-30] MEDS: ACETYLCYSTEINE 200MG/ML 20% VIAL 4ML INH SCH (13:13)
[2023-05-31] VITALS (111 sets, daily range): BP systolic 57–136; BP diastolic 34–98; PULSE 97–112; RESP 0–36; TEMP 97.8–98.6
[2023-05-31 05:50] LABS: AMMONIA < 10 uMol/L (<32)
[2023-05-31 05:52] LABS: HEMATOCRIT. 25.8 % (42.0-52.0); HEMOGLOBIN. 8.3 g/dL (14.0-18.0); MEAN CORPUSCULAR HEMOGLOBIN 30.9 pg (28.0-32.0); MEAN CORPUSCULAR HGB CONC 32.4 g/dL (31.0-37.0); MEAN CORPUSCULAR VOLUME 95.5 fL (80.0-94.0); MEAN PLATELET VOLUME 10.9 fl (7.4-10.4); PLATELET 56 x1000/uL (130-400); RED CELL DISTRIBUTION WIDTH 17.6 % (11.6-14.6)
[2023-05-31 06:00] LABS: DIFFERENTIAL COMMENT 1
[2023-05-31 06:07] LABS: CALCIUM 7.8 mg/dL (8.7-10.4); CARBON DIOXIDE 26 mEq/L (21-32); CHLORIDE 95 mEq/L (98-107); CREATININE 3.8 mg/dL (0.6-1.3); GLUCOSE 117 mg/dL (70-105); PHOSPHORUS 2.4 mg/dL (2.5-4.9); POTASSIUM 3.7 mEq/L (3.5-5.1); SODIUM 132 mEq/L (136-145); TRIGLYCERIDE 278 mg/dL (0-150); UREA NITROGEN BLOOD 45 mg/dL (9-23)
[2023-05-31] MEDS: SODIUM CHLORIDE 3% FOR INH 4ML UD NEB INH SCH (08:15)
[2023-05-31] MEDS: BLOOD SUGAR DIAGNOSTIC STRIP TEST SCH (08:22)
[2023-05-31 08:26] LABS: BG BASE EXCESS 2.7 mmol/L (-2.0-2.0); BG CARBOXYHEMOGLOBIN 0.1 % (0.5-1.5); BG DEOXYHEMOGLOBIN 1.7 % (0.0-5.0); BG FRACTION INSPIRED OXYGEN 40; BG HCO3 ACT 25.8 mmol/L (22.0-26.0); BG METHEMOGLOBIN 0.3 % (0.0-1.5); BG OXYGEN SATURATION 98.3 % (92.0-98.5); BG OXYHEMOGLOBIN 97.9 % (94.0-97.0); BG PCO2 33.5 mmHg (35.0-45.0); BG PH 7.504 (7.350-7.450); BG PO2 129.8 mmHg (75.0-100.0); BG SAMPLE SITE ALINE; BG TOTAL HEMOGLOBIN 8.6 g/dL (12.0-18.0); BG TOTAL RESPIRATORY RATE 41 b/min; BG VENT MODE VENT - AC
[2023-05-31 09:22] LABS: NUCLEATED RED BLOOD CELLS 4 /100 WBC; PLATELET ESTIMATE SLIGHTLY DECREASED
[2023-05-31 09:23] LABS: ANISOCYTOSIS 1+
[2023-05-31] MEDS: POTASSIUM PHOS,M-BASIC-D-BASIC 20 MMOL in DEXT 5% WATER 243.3333 ML IV SCH (09:55)
[2023-05-31] MEDS ORDERED: MORPHINE SULFATE 2 MG/ML CPJ (NOT FOR IM USE) IV PRN (15:15)
[2023-05-31] MEDS ORDERED: NALOXONE HCL 0.4MG/ML VIAL IV PRN (15:30)
[2023-05-31] MEDS: MEROPENEM 1G/100ML 100 ML IV SCH (17:37)
[2023-05-31] MEDS: FAT EMULSIONS 500 ML IV SCH (21:30)
[2023-06-01] VITALS (89 sets, daily range): BP systolic 76–151; BP diastolic 50–101; PULSE 100–134; RESP 0–44; TEMP 96–98.9
[2023-06-01 05:53] LABS: INR 1.1; PROTHROMBIN TIME 11.7 sec (9.6-11.0)
[2023-06-01 06:05] LABS: CALCIUM 8.1 mg/dL (8.7-10.4); CARBON DIOXIDE 25 mEq/L (21-32); CHLORIDE 92 mEq/L (98-107); CREATININE 3.9 mg/dL (0.6-1.3); GLUCOSE 105 mg/dL (70-105); PHOSPHORUS 1.3 mg/dL (2.5-4.9); POTASSIUM 3.8 mEq/L (3.5-5.1); SODIUM 130 mEq/L (136-145); UREA NITROGEN BLOOD 50 mg/dL (9-23)
[2023-06-01 08:01] LABS: AMMONIA 330 uMol/L (<32)
[2023-06-01 08:25] LABS: HEMATOCRIT. 24.8 % (42.0-52.0); HEMOGLOBIN. 9.1 g/dL (14.0-18.0); MEAN CORPUSCULAR HEMOGLOBIN 34.2 pg (28.0-32.0); MEAN CORPUSCULAR HGB CONC 36.5 g/dL (31.0-37.0); MEAN CORPUSCULAR VOLUME 93.7 fL (80.0-94.0); MEAN PLATELET VOLUME 9.2 fl (7.4-10.4); PLATELET 93 x1000/uL (130-400); RED BLOOD CELL COUNT 2.65 mill/uL (4.7-6.1); WHITE BLOOD COUNT 12.6 x1000/uL (4.5-11.0)
[2023-06-01 08:27] LABS: DIFFERENTIAL COMMENT 1
[2023-06-01] MEDS: SODIUM PHOS,M-BASIC-D-BASIC 20 MM in DEXT 5% WATER 243.3333 ML IV SCH (09:18)
[2023-06-01] MEDS: LACTULOSE 20G/30ML UDC PO SCH (13:56)
[2023-06-01 14:17] LABS: NUCLEATED RED BLOOD CELLS 5 /100 WBC
[2023-06-01 14:19] LABS: ANISOCYTOSIS 1+; PLATELET ESTIMATE DECREASED; TARGET CELLS 1+; TEAR DROP CELLS 1+
[2023-06-01] MEDS: TOTAL PARENTERAL NUTRITION 1,500 ML IV SCH (21:40)
[2023-06-02] VITALS (83 sets, daily range): BP systolic 86–142; BP diastolic 61–117; PULSE 109–117; RESP 0–35; TEMP 98–98.9
[2023-06-02 05:55] LABS: AMMONIA 55 uMol/L (<32)
[2023-06-02 06:00] LABS: INR 1.1; PROTHROMBIN TIME 11.9 sec (9.6-11.0)
[2023-06-02 06:02] LABS: CALCIUM 8.5 mg/dL (8.7-10.4); CARBON DIOXIDE 25 mEq/L (21-32); CHLORIDE 94 mEq/L (98-107); CREATININE 3.6 mg/dL (0.6-1.3); GLUCOSE 105 mg/dL (70-105); PHOSPHORUS 3.3 mg/dL (2.5-4.9); POTASSIUM 3.9 mEq/L (3.5-5.1); SODIUM 130 mEq/L (136-145); UREA NITROGEN BLOOD 43 mg/dL (9-23)
[2023-06-02 07:09] LABS: HEMATOCRIT. 23.6 % (42.0-52.0); HEMOGLOBIN. 7.9 g/dL (14.0-18.0); MEAN CORPUSCULAR HEMOGLOBIN 31.9 pg (28.0-32.0); MEAN CORPUSCULAR HGB CONC 33.4 g/dL (31.0-37.0); MEAN CORPUSCULAR VOLUME 95.7 fL (80.0-94.0); MEAN PLATELET VOLUME 10.8 fl (7.4-10.4); PLATELET 121 x1000/uL (130-400); RED BLOOD CELL COUNT 2.47 mill/uL (4.7-6.1); RED CELL DISTRIBUTION WIDTH 18.6 % (11.6-14.6); WHITE BLOOD COUNT 10.1 x1000/uL (4.5-11.0)
[2023-06-02 07:29] LABS: DIFFERENTIAL COMMENT 1
[2023-06-02 09:19] LABS: ANISOCYTOSIS 2+; PLATELET ESTIMATE SLIGHTLY DECREASED; TARGET CELLS 1+
[2023-06-02] MEDS: ALBUMIN HUMAN 25GM/100ML (25%) IV ONE (12:07)
[2023-06-02] MEDS: MICAFUNGIN 150 MG in SODIUM CHLORIDE 0.9% 100 ML IV SCH (13:40)
[2023-06-03] VITALS (123 sets, daily range): BP systolic 76–157; BP diastolic 47–117; PULSE 107–142; RESP 11–39; TEMP 98–100.5
[2023-06-03 04:56] LABS: AMMONIA < 10 uMol/L (<32)
[2023-06-03 05:31] LABS: CALCIUM 8.6 mg/dL (8.7-10.4); CREATININE 3.8 mg/dL (0.6-1.3); POTASSIUM 3.8 mEq/L (3.5-5.1)
[2023-06-03 06:30] LABS: HEMOGLOBIN. 7.5 g/dL (14.0-18.0); MEAN CORPUSCULAR HEMOGLOBIN 31.7 pg (28.0-32.0); MEAN CORPUSCULAR HGB CONC 33.9 g/dL (31.0-37.0); MEAN CORPUSCULAR VOLUME 93.4 fL (80.0-94.0); MEAN PLATELET VOLUME 10.5 fl (7.4-10.4); PLATELET 168 x1000/uL (130-400); RED BLOOD CELL COUNT 2.35 mill/uL (4.7-6.1); RED CELL DISTRIBUTION WIDTH 18.2 % (11.6-14.6); WHITE BLOOD COUNT 12.9 x1000/uL (4.5-11.0)
[2023-06-03 07:03] LABS: DIFFERENTIAL COMMENT 1
[2023-06-03] MEDS: ALBUMIN HUMAN 25GM/100ML (25%) IV NR (12:31)
[2023-06-03 14:50] LABS: NUCLEATED RED BLOOD CELLS 2 /100 WBC
[2023-06-03 14:52] LABS: ANISOCYTOSIS 2+; PLATELET ESTIMATE NORMAL; TARGET CELLS 1+
[2023-06-03] MEDS: TOTAL PARENTERAL NUTRITION 1,500 ML IV SCH (21:17)
[2023-06-03] MEDS: IPRATROPIUM/ALBUTEROL 0.5-3(2.5)MG/3ML NEB HHN SCH (23:58)
[2023-06-04] VITALS (107 sets, daily range): BP systolic 68–203; BP diastolic 51–177; PULSE 107–155; RESP 0–39; TEMP 98.5–100.8
[2023-06-04 04:53] LABS: AMMONIA < 10 uMol/L (<32)
[2023-06-04 05:57] LABS: ALANINE AMINOTRANSFERASE 17 IU/L (10-49); ALBUMIN 3.1 g/dL (3.2-4.8); ASPARTATE AMINOTRANSFERASE 85 IU/L (<34); BILIRUBIN TOTAL 16.3 mg/dL (0.1-1.0); CALCIUM 8.6 mg/dL (8.7-10.4); CARBON DIOXIDE 23 mEq/L (21-32); CHLORIDE 98 mEq/L (98-107); CREATININE 3.3 mg/dL (0.6-1.3); GLUCOSE 96 mg/dL (70-105); PROTEIN TOTAL 6.6 g/dL (6.0-8.3); SODIUM 133 mEq/L (136-145); UREA NITROGEN BLOOD 43 mg/dL (9-23)
[2023-06-04 08:38] LABS: PHOSPHORUS 3.7 mg/dL (2.5-4.9)
[2023-06-04] MEDS: NITROGLYCERIN OINT 1GM/INCH UDPKT TD PRN (13:12)
[2023-06-04] MEDS: ACETAMINOPHEN 325MG TABLET PO PRN (19:56)
[2023-06-04] MEDS: LACTULOSE 20G/30ML UDC PO SCH (19:56)
[2023-06-04] MEDS ORDERED: FLUCONAZOLE 200 MG/100ML BAG 100 ML IV SCH (22:15)
[2023-06-04] MEDS: FLUCONAZOLE 100MG/50ML in BAG IV SCH (23:55)
[2023-06-05] VITALS (105 sets, daily range): BP systolic 78–143; BP diastolic 53–125; PULSE 91–127; RESP 0–39; TEMP 97.3–100.9
[2023-06-05] MEDS: ACETYLCYSTEINE 200MG/ML 20% VIAL 4ML INH SCH (00:20)
[2023-06-05 05:48] LABS: MEAN CORPUSCULAR HGB CONC 32.9 g/dL (31.0-37.0); MEAN PLATELET VOLUME 10.2 fl (7.4-10.4); PLATELET 219 x1000/uL (130-400); RED BLOOD CELL COUNT 2.23 mill/uL (4.7-6.1); RED CELL DISTRIBUTION WIDTH 18.7 % (11.6-14.6); WHITE BLOOD COUNT 15.7 x1000/uL (4.5-11.0)
[2023-06-05 05:58] LABS: AMMONIA < 10 uMol/L (<32)
[2023-06-05 05:59] LABS: CALCIUM 8.5 mg/dL (8.7-10.4); CARBON DIOXIDE 24 mEq/L (21-32); CHLORIDE 98 mEq/L (98-107); CREATININE 3.7 mg/dL (0.6-1.3); GLUCOSE 105 mg/dL (70-105); PHOSPHORUS 4.2 mg/dL (2.5-4.9); POTASSIUM 4.3 mEq/L (3.5-5.1); SODIUM 134 mEq/L (136-145); UREA NITROGEN BLOOD 53 mg/dL (9-23)
[2023-06-05 06:14] LABS: DIFFERENTIAL COMMENT 1; HEMOGLOBIN. 6.9 g/dL (14.0-18.0)
[2023-06-05 10:03] LABS: ANISOCYTOSIS 2+; NUCLEATED RED BLOOD CELLS 5 /100 WBC; PLATELET ESTIMATE NORMAL
[2023-06-05 10:04] LABS: TARGET CELLS FEW
[2023-06-05] MEDS ORDERED: NALOXONE HCL 0.4MG/ML VIAL IV PRN (19:00)
[2023-06-05] MEDS: MORPHINE SULFATE 2 MG/ML CPJ (NOT FOR IM USE) IV PRN (19:12)
[2023-06-05] MEDS: TOTAL PARENTERAL NUTRITION 1,500 ML IV SCH (21:32)
[2023-06-06] VITALS (103 sets, daily range): BP systolic 48–148; BP diastolic 24–112; PULSE 67–174; RESP 0–37; TEMP 97.8–98.4
[2023-06-06] MEDS: DILTIAZEM HCL 5MG/ML 5ML VIAL IV NR (04:35)
[2023-06-06 05:12] LABS: CALCIUM 8.2 mg/dL (8.7-10.4); CREATININE 3.4 mg/dL (0.6-1.3); POTASSIUM 3.6 mEq/L (3.5-5.1)
[2023-06-06 05:13] LABS: AMMONIA < 10 uMol/L (<32)
[2023-06-06 09:06] LABS: BG BASE EXCESS -3.8 mmol/L (-2.0-2.0); BG CARBOXYHEMOGLOBIN 0.6 % (0.5-1.5); BG DEOXYHEMOGLOBIN 6.3 % (0.0-5.0); BG FRACTION INSPIRED OXYGEN 40; BG HCO3 ACT 21.8 mmol/L (22.0-26.0); BG METHEMOGLOBIN 0.3 % (0.0-1.5); BG OXYGEN SATURATION 93.6 % (92.0-98.5); BG OXYHEMOGLOBIN 92.8 % (94.0-97.0); BG PCO2 41.7 mmHg (35.0-45.0); BG PH 7.336 (7.350-7.450); BG PO2 75.3 mmHg (75.0-100.0); BG SAMPLE SITE RIGHT RADIAL; BG TOTAL HEMOGLOBIN 8.3 g/dL (12.0-18.0); BG VENT MODE VENT - AC
[2023-06-06 09:31] LABS: HEMATOCRIT. 24.9 % (42.0-52.0); MEAN CORPUSCULAR HEMOGLOBIN 30.3 pg (28.0-32.0); MEAN CORPUSCULAR HGB CONC 32.2 g/dL (31.0-37.0); MEAN CORPUSCULAR VOLUME 94.2 fL (80.0-94.0); MEAN PLATELET VOLUME 10.4 fl (7.4-10.4); PLATELET 177 x1000/uL (130-400); RED BLOOD CELL COUNT 2.64 mill/uL (4.7-6.1)
[2023-06-06 10:22] LABS: DIFFERENTIAL COMMENT 1
[2023-06-06 11:13] LABS: ANISOCYTOSIS 2+; NUCLEATED RED BLOOD CELLS 1 /100 WBC; PLATELET ESTIMATE NORMAL; TARGET CELLS 1+
[2023-06-07] VITALS (82 sets, daily range): BP systolic 57–155; BP diastolic 34–124; PULSE 90–154; RESP 0–35; TEMP 98–99.6
[2023-06-07 06:39] LABS: MEAN CORPUSCULAR HEMOGLOBIN 30.6 pg (28.0-32.0); MEAN CORPUSCULAR HGB CONC 33.5 g/dL (31.0-37.0); MEAN CORPUSCULAR VOLUME 91.5 fL (80.0-94.0); MEAN PLATELET VOLUME 10.3 fl (7.4-10.4); PLATELET 179 x1000/uL (130-400); RED BLOOD CELL COUNT 2.62 mill/uL (4.7-6.1); RED CELL DISTRIBUTION WIDTH 18.8 % (11.6-14.6)
[2023-06-07 06:55] LABS: AMMONIA < 10 uMol/L (<32)
[2023-06-07 07:21] LABS: DIFFERENTIAL COMMENT 1
[2023-06-07 08:37] LABS: CALCIUM 8.2 mg/dL (8.7-10.4); CARBON DIOXIDE 21 mEq/L (21-32); CHLORIDE 96 mEq/L (98-107); CREATININE 3.6 mg/dL (0.6-1.3); GLUCOSE 102 mg/dL (70-105); PHOSPHORUS 3.6 mg/dL (2.5-4.9); POTASSIUM 3.5 mEq/L (3.5-5.1); SODIUM 132 mEq/L (136-145); UREA NITROGEN BLOOD 53 mg/dL (9-23)
[2023-06-07] MEDS: AMIODARONE HCL 900 MG in DEXT 5% WATER 482 ML IV SCH (09:01)
[2023-06-07 11:12] LABS: ANISOCYTOSIS 1+; NUCLEATED RED BLOOD CELLS 11 /100 WBC; PLATELET ESTIMATE NORMAL; TARGET CELLS FEW
[2023-06-07] MEDS: LIDOCAINE HCL 1% 10 MG/ML 10ML VIAL ONE ×3 (13:26→20:01)
[2023-06-07] MEDS: HEPARIN 1000 UNITS/ML 10ML ONE (20:02)
[2023-06-08] VITALS (104 sets, daily range): BP systolic 63–133; BP diastolic 46–104; PULSE 89–104; RESP 0–31; TEMP 98.4–98.8
[2023-06-08 05:54] LABS: HEMOGLOBIN. 8.2 g/dL (14.0-18.0); MEAN CORPUSCULAR HEMOGLOBIN 32.3 pg (28.0-32.0); MEAN CORPUSCULAR HGB CONC 34.4 g/dL (31.0-37.0); MEAN CORPUSCULAR VOLUME 94.1 fL (80.0-94.0); MEAN PLATELET VOLUME 10.4 fl (7.4-10.4); PLATELET 193 x1000/uL (130-400); RED BLOOD CELL COUNT 2.55 mill/uL (4.7-6.1); RED CELL DISTRIBUTION WIDTH 19.3 % (11.6-14.6); WHITE BLOOD COUNT 32.4 x1000/uL (4.5-11.0)
[2023-06-08 05:56] LABS: AMMONIA 57 uMol/L (<32)
[2023-06-08 06:16] LABS: CALCIUM 8.3 mg/dL (8.7-10.4); CREATININE 3.2 mg/dL (0.6-1.3); POTASSIUM 2.9 mEq/L (3.5-5.1)
[2023-06-08 07:15] LABS: DIFFERENTIAL COMMENT 1
[2023-06-08] MEDS: KCL 20MEQ/100ML X 2 FOR TOTAL KCL 40MEQ/200ML IV SCH (11:19)
[2023-06-08] MEDS: AMIODARONE HCL 200 MG TABLET PO SCH (13:08)
[2023-06-08 15:53] LABS: NUCLEATED RED BLOOD CELLS 2 /100 WBC
[2023-06-08 15:54] LABS: ANISOCYTOSIS 1+; PLATELET ESTIMATE NORMAL
[2023-06-08] MEDS: RIFAXIMIN 550 MG TABLET NG SCH (20:49)
[2023-06-08] MEDS: TOTAL PARENTERAL NUTRITION 1,500 ML IV SCH (20:50)
[2023-06-09] VITALS (108 sets, daily range): BP systolic 72–139; BP diastolic 23–92; PULSE 75–108; RESP 13–33; TEMP 97.6–99.3
[2023-06-09 05:33] LABS: HEMATOCRIT. 23.2 % (42.0-52.0); HEMOGLOBIN. 7.6 g/dL (14.0-18.0); MEAN CORPUSCULAR HEMOGLOBIN 30.8 pg (28.0-32.0); MEAN CORPUSCULAR HGB CONC 32.9 g/dL (31.0-37.0); MEAN CORPUSCULAR VOLUME 93.4 fL (80.0-94.0); MEAN PLATELET VOLUME 10.5 fl (7.4-10.4); PLATELET 169 x1000/uL (130-400); RED BLOOD CELL COUNT 2.48 mill/uL (4.7-6.1); RED CELL DISTRIBUTION WIDTH 19.8 % (11.6-14.6)
[2023-06-09 05:39] LABS: INR 1.2; PROTHROMBIN TIME 12.4 sec (9.6-11.0)
[2023-06-09 05:54] LABS: AMMONIA 28 uMol/L (<32)
[2023-06-09 06:04] LABS: ALANINE AMINOTRANSFERASE 25 IU/L (10-49); ALBUMIN 2.2 g/dL (3.2-4.8); ASPARTATE AMINOTRANSFERASE 151 IU/L (<34); BILIRUBIN DIRECT 12.6 mg/dL (<=3.0); BILIRUBIN TOTAL 14.8 mg/dL (0.1-1.0); CALCIUM 7.8 mg/dL (8.7-10.4); CARBON DIOXIDE 22 mEq/L (21-32); CHLORIDE 94 mEq/L (98-107); CHOLESTEROL 104 mg/dL (<200); CREATININE 3.4 mg/dL (0.6-1.3); GLUCOSE 171 mg/dL (70-105); LDL CHOLESTEROL 38 mg/dL (5-100); PHOSPHORUS 2.4 mg/dL (2.5-4.9); POTASSIUM 3.4 mEq/L (3.5-5.1); PROTEIN TOTAL 5.4 g/dL (6.0-8.3); SODIUM 125 mEq/L (136-145); TRIGLYCERIDE 184 mg/dL (0-150); UREA NITROGEN BLOOD 54 mg/dL (9-23)
[2023-06-09 06:05] LABS: HDL CHOLESTEROL < 5 mg/dL (>55)
[2023-06-09 07:25] LABS: DIFFERENTIAL COMMENT 1
[2023-06-09] MEDS: VANCOMYCIN 2,000 MG in DEXT 5% WATER 500 ML IV NR (08:53)
[2023-06-09] MEDS: MEROPENEM 1G/100ML 100 ML IV SCH (08:53)
[2023-06-09] MEDS: KCL 20MEQ/100ML PREMIX 100 ML IV SCH (10:58)
[2023-06-09] MEDS: SODIUM PHOS,M-BASIC-D-BASIC 10 MM in DEXT 5% WATER 250 ML IV SCH (11:55)
[2023-06-09] MEDS: IPRATROPIUM/ALBUTEROL 0.5-3(2.5)MG/3ML NEB HHN SCH (11:56)
[2023-06-09 15:38] LABS: ANISOCYTOSIS 1+; NUCLEATED RED BLOOD CELLS 6 /100 WBC; PLATELET ESTIMATE NORMAL
[2023-06-09] MEDS: TOTAL PARENTERAL NUTRITION 1,500 ML IV SCH (21:37)
[2023-06-10] VITALS (110 sets, daily range): BP systolic 70–165; BP diastolic 18–99; PULSE 87–114; RESP 0–33; TEMP 97.4–98.8
[2023-06-10 05:32] LABS: HEMATOCRIT. 21.7 % (42.0-52.0); MEAN CORPUSCULAR HEMOGLOBIN 30.5 pg (28.0-32.0); MEAN CORPUSCULAR HGB CONC 32.3 g/dL (31.0-37.0); MEAN CORPUSCULAR VOLUME 94.3 fL (80.0-94.0); MEAN PLATELET VOLUME 10.5 fl (7.4-10.4); PLATELET 164 x1000/uL (130-400); RED BLOOD CELL COUNT 2.31 mill/uL (4.7-6.1); RED CELL DISTRIBUTION WIDTH 19.4 % (11.6-14.6); WHITE BLOOD COUNT 27.6 x1000/uL (4.5-11.0)
[2023-06-10 05:53] LABS: AMMONIA < 10 uMol/L (<32)
[2023-06-10 06:03] LABS: ALANINE AMINOTRANSFERASE 17 IU/L (10-49); ALBUMIN 2.3 g/dL (3.2-4.8); ASPARTATE AMINOTRANSFERASE 145 IU/L (<34); BILIRUBIN TOTAL 13.7 mg/dL (0.1-1.0); CALCIUM 7.7 mg/dL (8.7-10.4); CARBON DIOXIDE 20 mEq/L (21-32); CHLORIDE 86 mEq/L (98-107); CREATININE 3.5 mg/dL (0.6-1.3); GLUCOSE 311 mg/dL (70-105); POTASSIUM 3.7 mEq/L (3.5-5.1); PROTEIN TOTAL 5.5 g/dL (6.0-8.3); UREA NITROGEN BLOOD 50 mg/dL (9-23)
[2023-06-10 06:07] LABS: SODIUM 118 mEq/L (136-145)
[2023-06-10 06:30] LABS: DIFFERENTIAL COMMENT 1
[2023-06-10 08:46] LABS: BG BASE EXCESS -7.2 mmol/L (-2.0-2.0); BG CARBOXYHEMOGLOBIN 0.5 % (0.5-1.5); BG DEOXYHEMOGLOBIN 4.4 % (0.0-5.0); BG FRACTION INSPIRED OXYGEN 40; BG HCO3 ACT 19.3 mmol/L (22.0-26.0); BG METHEMOGLOBIN 0.2 % (0.0-1.5); BG OXYGEN SATURATION 95.6 % (92.0-98.5); BG OXYHEMOGLOBIN 94.9 % (94.0-97.0); BG PCO2 43.9 mmHg (35.0-45.0); BG PH 7.262 (7.350-7.450); BG PO2 86.3 mmHg (75.0-100.0); BG SAMPLE SITE RIGHT RADIAL; BG TOTAL HEMOGLOBIN 8.1 g/dL (12.0-18.0); BG TOTAL RESPIRATORY RATE 20 b/min; BG VENT MODE VENT - AC
[2023-06-10] MEDS: LIDOCAINE HCL 1% 10 MG/ML 10ML VIAL ONE (10:50)
[2023-06-10] MEDS ORDERED: FLUCONAZOLE 100MG/50ML in BAG IV SCH (11:00)
[2023-06-10] MEDS ORDERED: FLUCONAZOLE 100 MG/50ML BAG 50 ML IV SCH ×3 (11:00→22:00)
[2023-06-10 12:07] LABS: NUCLEATED RED BLOOD CELLS 6 /100 WBC
[2023-06-10 12:08] LABS: ANISOCYTOSIS 2+; PLATELET ESTIMATE NORMAL
[2023-06-10] MEDS: EPINEPHRINE 10 MG in SODIUM CHLORIDE 0.9% 240 ML IV PRN (16:15)
[2023-06-10] MEDS: FLUCONAZOLE 200 MG/100ML BAG 100 ML IV SCH (17:34)
[2023-06-10] MEDS ORDERED: DOPAMINE 800MG PREMIX (DOUBLE) 250 ML IV PRN (20:00)
[2023-06-11] VITALS (90 sets, daily range): BP systolic 57–152; BP diastolic 39–105; PULSE 81–106; RESP 10–34; TEMP 97.9–99.1
[2023-06-11 05:50] LABS: MEAN CORPUSCULAR HEMOGLOBIN 31.5 pg (28.0-32.0); MEAN CORPUSCULAR HGB CONC 33.6 g/dL (31.0-37.0); MEAN CORPUSCULAR VOLUME 93.7 fL (80.0-94.0); RED BLOOD CELL COUNT 2.13 mill/uL (4.7-6.1); RED CELL DISTRIBUTION WIDTH 18.4 % (11.6-14.6)
[2023-06-11 05:51] LABS: MEAN PLATELET VOLUME 9.7 fl (7.4-10.4); PLATELET 109 x1000/uL (130-400)
[2023-06-11 05:54] LABS: AMMONIA < 17 uMol/L (<32)
[2023-06-11 06:00] LABS: INR 1.1; PROTHROMBIN TIME 12.6 sec (9.6-11.0)
[2023-06-11 06:06] LABS: ALANINE AMINOTRANSFERASE 21 IU/L (10-49); ALBUMIN 2.3 g/dL (3.2-4.8); ASPARTATE AMINOTRANSFERASE 183 IU/L (<34); BILIRUBIN DIRECT 12.5 mg/dL (<=3.0); BILIRUBIN TOTAL 15.1 mg/dL (0.1-1.0); CALCIUM 7.8 mg/dL (8.7-10.4); CARBON DIOXIDE 20 mEq/L (21-32); CHLORIDE 92 mEq/L (98-107); CREATININE 3.3 mg/dL (0.6-1.3); GLUCOSE 100 mg/dL (70-105); POTASSIUM 4.4 mEq/L (3.5-5.1); PROTEIN TOTAL 5.8 g/dL (6.0-8.3); SODIUM 125 mEq/L (136-145); UREA NITROGEN BLOOD 51 mg/dL (9-23)
[2023-06-11 06:44] LABS: HEMOGLOBIN. 6.7 g/dL (14.0-18.0)
[2023-06-11 06:45] LABS: DIFFERENTIAL COMMENT 1; HEMATOCRIT. 19.9 % (42.0-52.0)
[2023-06-11 07:59] LABS: BG BASE EXCESS -6.5 mmol/L (-2.0-2.0); BG CARBOXYHEMOGLOBIN 0.1 % (0.5-1.5); BG DEOXYHEMOGLOBIN 3.2 % (0.0-5.0); BG FRACTION INSPIRED OXYGEN 40; BG HCO3 ACT 18.1 mmol/L (22.0-26.0); BG METHEMOGLOBIN 0.3 % (0.0-1.5); BG OXYGEN SATURATION 96.8 % (92.0-98.5); BG OXYHEMOGLOBIN 96.4 % (94.0-97.0); BG PCO2 32.7 mmHg (35.0-45.0); BG PH 7.361 (7.350-7.450); BG SAMPLE SITE RIGHT RADIAL; BG TOTAL HEMOGLOBIN 9.2 g/dL (12.0-18.0); BG VENT MODE VENT - AC/VC
[2023-06-11] MEDS: DEXT 5%/0.9% NACL 1,000 ML IV SCH (08:30)
[2023-06-11] MEDS: VANCOMYCIN 500MG PREMIX 100 ML IV NR (10:14)
[2023-06-11] MEDS ORDERED: LEVOFLOXACIN 500MG PREMIX 100 ML IV SCH (16:00)
[2023-06-11] MEDS: LEVOFLOXACIN 500MG PREMIX 100 ML IV SCH (20:58)
[2023-06-11 23:19] LABS: NUCLEATED RED BLOOD CELLS 3 /100 WBC; PLATELET ESTIMATE NORMAL
[2023-06-12] VITALS (104 sets, daily range): BP systolic 12–166; BP diastolic 2–104; PULSE 85–102; RESP 0–31; TEMP 97.9–98.5
[2023-06-12 05:17] LABS: HEMATOCRIT. 26.7 % (42.0-52.0); HEMOGLOBIN. 9.4 g/dL (14.0-18.0); MEAN CORPUSCULAR HEMOGLOBIN 31.9 pg (28.0-32.0); MEAN CORPUSCULAR HGB CONC 35.4 g/dL (31.0-37.0); MEAN CORPUSCULAR VOLUME 90.2 fL (80.0-94.0); MEAN PLATELET VOLUME 10.1 fl (7.4-10.4); PLATELET 147 x1000/uL (130-400); RED BLOOD CELL COUNT 2.96 mill/uL (4.7-6.1); RED CELL DISTRIBUTION WIDTH 17.5 % (11.6-14.6); WHITE BLOOD COUNT 19.7 x1000/uL (4.5-11.0)
[2023-06-12 05:22] LABS: AMMONIA < 17 uMol/L (<32)
[2023-06-12 05:23] LABS: DIFFERENTIAL COMMENT 1
[2023-06-12 05:24] LABS: CALCIUM 8.3 mg/dL (8.7-10.4); CREATININE 3.8 mg/dL (0.6-1.3); POTASSIUM 4.6 mEq/L (3.5-5.1)
[2023-06-12 11:22] LABS: ATYPICAL LYMPHOCYTES 1
[2023-06-12 11:24] LABS: ANISOCYTOSIS 2+; PLATELET ESTIMATE NORMAL
[2023-06-13] VITALS (100 sets, daily range): BP systolic 82–141; BP diastolic 32–126; PULSE 88–102; RESP 0–33; TEMP 97.8–98.5
[2023-06-13 05:48] LABS: HEMATOCRIT. 25.8 % (42.0-52.0); MEAN CORPUSCULAR HEMOGLOBIN 31.6 pg (28.0-32.0); MEAN CORPUSCULAR HGB CONC 34.8 g/dL (31.0-37.0); MEAN CORPUSCULAR VOLUME 90.6 fL (80.0-94.0); MEAN PLATELET VOLUME 9.3 fl (7.4-10.4); PLATELET 142 x1000/uL (130-400); RED BLOOD CELL COUNT 2.84 mill/uL (4.7-6.1); RED CELL DISTRIBUTION WIDTH 17.7 % (11.6-14.6); WHITE BLOOD COUNT 15.6 x1000/uL (4.5-11.0)
[2023-06-13 06:19] LABS: CALCIUM 8.1 mg/dL (8.7-10.4); CREATININE 3.8 mg/dL (0.6-1.3); POTASSIUM 3.8 mEq/L (3.5-5.1)
[2023-06-13 06:45] LABS: DIFFERENTIAL COMMENT 1
[2023-06-13 11:17] LABS: ANISOCYTOSIS 1+; NUCLEATED RED BLOOD CELLS 1 /100 WBC; PLATELET ESTIMATE NORMAL; TARGET CELLS 1+
[2023-06-13] MEDS ORDERED: DEXTROSE 50% WATER 50ML SYRINGE IV PRN (12:45)
[2023-06-14] VITALS (91 sets, daily range): BP systolic 70–159; BP diastolic 38–142; PULSE 57–106; RESP 0–31; TEMP 97.2–98.3
[2023-06-14 05:44] LABS: HEMATOCRIT. 27.2 % (42.0-52.0); HEMOGLOBIN. 9.1 g/dL (14.0-18.0); MEAN CORPUSCULAR HEMOGLOBIN 31.2 pg (28.0-32.0); MEAN CORPUSCULAR HGB CONC 33.4 g/dL (31.0-37.0); MEAN CORPUSCULAR VOLUME 93.5 fL (80.0-94.0); MEAN PLATELET VOLUME 9.5 fl (7.4-10.4); PLATELET 140 x1000/uL (130-400); RED BLOOD CELL COUNT 2.91 mill/uL (4.7-6.1); RED CELL DISTRIBUTION WIDTH 18.8 % (11.6-14.6); WHITE BLOOD COUNT 13.2 x1000/uL (4.5-11.0)
[2023-06-14 05:51] LABS: CALCIUM 8.1 mg/dL (8.7-10.4); CREATININE 3.8 mg/dL (0.6-1.3)
[2023-06-14 06:30] LABS: DIFFERENTIAL COMMENT 1
[2023-06-14 10:41] LABS: ANISOCYTOSIS 1+; NUCLEATED RED BLOOD CELLS 2 /100 WBC; PLATELET ESTIMATE NORMAL
[2023-06-14 10:42] LABS: TARGET CELLS 1+
[2023-06-14] MEDS: BLOOD SUGAR DIAGNOSTIC STRIP TEST SCH (12:00)
[2023-06-14 12:39] LABS: INR 1.1; PROTHROMBIN TIME 12.1 sec (9.6-11.0)
[2023-06-14] MEDS: FAT EMULSIONS 500 ML IV SCH (21:38)
[2023-06-14] MEDS: TOTAL PARENTERAL NUTRITION 1,000 ML IV SCH (21:41)
[2023-06-15] VITALS (89 sets, daily range): BP systolic 47–159; BP diastolic 28–133; PULSE 80–93; RESP 0–33; TEMP 96–98.6
[2023-06-15 05:55] LABS: ALANINE AMINOTRANSFERASE 15 IU/L (10-49); ALBUMIN 2.7 g/dL (3.2-4.8); ASPARTATE AMINOTRANSFERASE 172 IU/L (<34); BILIRUBIN DIRECT 12.5 mg/dL (<=3.0); BILIRUBIN TOTAL 15.1 mg/dL (0.1-1.0); CALCIUM 8.1 mg/dL (8.7-10.4); CARBON DIOXIDE 19 mEq/L (21-32); CHLORIDE 94 mEq/L (98-107); CREATININE 3.1 mg/dL (0.6-1.3); GLUCOSE 112 mg/dL (70-105); POTASSIUM 3.6 mEq/L (3.5-5.1); PROTEIN TOTAL 5.4 g/dL (6.0-8.3); SODIUM 128 mEq/L (136-145); UREA NITROGEN BLOOD 43 mg/dL (9-23)
[2023-06-15 06:25] LABS: PHOSPHORUS < 0.3 mg/dL (2.5-4.9)
[2023-06-15 06:53] LABS: AMMONIA 52 uMol/L (<32)
[2023-06-15 07:17] LABS: INR 1.1; PROTHROMBIN TIME 12.4 sec (9.6-11.0)
[2023-06-15 07:39] LABS: BG BASE EXCESS -4.4 mmol/L (-2.0-2.0); BG CARBOXYHEMOGLOBIN 0.3 % (0.5-1.5); BG DEOXYHEMOGLOBIN 4.7 % (0.0-5.0); BG FRACTION INSPIRED OXYGEN 40; BG HCO3 ACT 19.7 mmol/L (22.0-26.0); BG METHEMOGLOBIN 0.1 % (0.0-1.5); BG OXYGEN SATURATION 95.3 % (92.0-98.5); BG OXYHEMOGLOBIN 94.9 % (94.0-97.0); BG PCO2 32.1 mmHg (35.0-45.0); BG PH 7.405 (7.350-7.450); BG PO2 81.1 mmHg (75.0-100.0); BG SAMPLE SITE RIGHT RADIAL; BG TOTAL HEMOGLOBIN 9.3 g/dL (12.0-18.0); BG VENT MODE VENT - AC
[2023-06-15] MEDS: POTASSIUM PHOS,M-BASIC-D-BASIC 15 MMOL in DEXT 5% WATER 245 ML IV NR (08:42)
[2023-06-15 09:16] LABS: HEMATOCRIT. 25.8 % (42.0-52.0); MEAN CORPUSCULAR VOLUME 93.7 fL (80.0-94.0); RED BLOOD CELL COUNT 2.76 mill/uL (4.7-6.1); WHITE BLOOD COUNT 16.8 x1000/uL (4.5-11.0)
[2023-06-15 09:17] LABS: RED CELL DISTRIBUTION WIDTH 18.4 % (11.6-14.6)
[2023-06-15 09:19] LABS: HEMOGLOBIN. 8.9 g/dL (14.0-18.0); MEAN CORPUSCULAR HEMOGLOBIN 32.1 pg (28.0-32.0); MEAN CORPUSCULAR HGB CONC 34.3 g/dL (31.0-37.0)
[2023-06-15] MEDS ORDERED: TOTAL PARENTERAL NUTRITION 1,000 ML IV SCH (09:30)
[2023-06-15] MEDS: ONDANSETRON HCL 4MG/2ML INJ IV PRN (12:01)
[2023-06-15] MEDS: SODIUM PHOS,M-BASIC-D-BASIC 15 MM in DEXT 5% WATER 245 ML IV NR (12:02)
[2023-06-15 13:54] LABS: PHOSPHORUS 2.3 mg/dL (2.5-4.9)
[2023-06-15 14:57] LABS: ANISOCYTOSIS 2+; NUCLEATED RED BLOOD CELLS 2 /100 WBC; SMUDGE CELLS 1+
[2023-06-15 15:00] LABS: PLATELET ESTIMATE NORMAL
[2023-06-15] MEDS: FENTANYL CITRATE/PF 50MCG/ML 2ML VIAL IV PRN (16:19)
[2023-06-15] MEDS: TOTAL PARENTERAL NUTRITION IV SCH (20:42)
[2023-06-16] VITALS (110 sets, daily range): BP systolic 11–175; BP diastolic 20–135; PULSE 79–103; RESP 0–31; TEMP 96–98.4
[2023-06-16 05:52] LABS: AMMONIA 35 uMol/L (<32)
[2023-06-16 05:57] LABS: CALCIUM 7.7 mg/dL (8.7-10.4); CARBON DIOXIDE 15 mEq/L (21-32); CHLORIDE 97 mEq/L (98-107); CHOLESTEROL 123 mg/dL (<200); CREATININE 3.6 mg/dL (0.6-1.3); GLUCOSE 92 mg/dL (70-105); PHOSPHORUS 4.2 mg/dL (2.5-4.9); POTASSIUM 4.5 mEq/L (3.5-5.1); SODIUM 128 mEq/L (136-145); TRIGLYCERIDE 265 mg/dL (0-150); UREA NITROGEN BLOOD 34 mg/dL (9-23)
[2023-06-16 06:08] LABS: HEMATOCRIT. 25.5 % (42.0-52.0); HEMOGLOBIN. 8.2 g/dL (14.0-18.0); MEAN CORPUSCULAR HEMOGLOBIN 31.2 pg (28.0-32.0); MEAN CORPUSCULAR VOLUME 97.6 fL (80.0-94.0); MEAN PLATELET VOLUME 10.1 fl (7.4-10.4); PLATELET 128 x1000/uL (130-400); RED BLOOD CELL COUNT 2.61 mill/uL (4.7-6.1); RED CELL DISTRIBUTION WIDTH 19.3 % (11.6-14.6); WHITE BLOOD COUNT 12.1 x1000/uL (4.5-11.0)
[2023-06-16 06:21] LABS: DIFFERENTIAL COMMENT 1
[2023-06-16] MEDS ORDERED: NALOXONE HCL 0.4MG/ML VIAL IV PRN (09:45)
[2023-06-16 14:03] LABS: ANISOCYTOSIS 2+; NUCLEATED RED BLOOD CELLS 1 /100 WBC; PLATELET ESTIMATE SLIGHTLY DECREASED
[2023-06-17] VITALS (107 sets, daily range): BP systolic 60–168; BP diastolic 39–150; PULSE 64–100; RESP 0–36; TEMP 97.3–98
[2023-06-17 05:32] LABS: AMMONIA 18 uMol/L (<32); CARBON DIOXIDE 20 mEq/L (21-32); CHLORIDE 97 mEq/L (98-107); CREATININE 3.4 mg/dL (0.6-1.3); GLUCOSE 111 mg/dL (70-105); POTASSIUM 3.3 mEq/L (3.5-5.1); SODIUM 130 mEq/L (136-145); UREA NITROGEN BLOOD 43 mg/dL (9-23)
[2023-06-17 06:14] LABS: BASOPHILS % 0.5 % (0.0-2.0); DIFFERENTIAL COMMENT 0; EOSINOPHILS % 2.3 % (0.0-5.0); HEMATOCRIT. 30.1 % (42.0-52.0); HEMOGLOBIN. 9.7 g/dL (14.0-18.0); MEAN CORPUSCULAR HEMOGLOBIN 29.8 pg (28.0-32.0); MEAN CORPUSCULAR HGB CONC 32.2 g/dL (31.0-37.0); MEAN CORPUSCULAR VOLUME 92.6 fL (80.0-94.0); MEAN PLATELET VOLUME 10.3 fl (7.4-10.4); MONOCYTES % 5.1 % (2.0-8.0); NEUTROPHILS % 74.1 % (40.0-76.0); PLATELET 152 x1000/uL (130-400); RED BLOOD CELL COUNT 3.25 mill/uL (4.7-6.1); RED CELL DISTRIBUTION WIDTH 18.8 % (11.6-14.6); WHITE BLOOD COUNT 13.7 x1000/uL (4.5-11.0)
[2023-06-17] MEDS: AMIODARONE HCL 200 MG TABLET PO SCH (09:46)
[2023-06-17] MEDS: KCL 20MEQ/100ML PREMIX 100 ML IV NR (09:46)
[2023-06-17] MEDS: FAT EMULSIONS 500 ML IV SCH (20:34)
[2023-06-17] MEDS: TOTAL PARENTERAL NUTRITION IV SCH (22:38)
[2023-06-18] VITALS (95 sets, daily range): BP systolic 73–196; BP diastolic 48–169; PULSE 52–101; RESP 0–36; TEMP 97.3–97.6
[2023-06-18 05:55] LABS: HEMATOCRIT. 27.2 % (42.0-52.0); HEMOGLOBIN. 9.8 g/dL (14.0-18.0); MEAN CORPUSCULAR HEMOGLOBIN 33.9 pg (28.0-32.0); MEAN CORPUSCULAR VOLUME 94.2 fL (80.0-94.0); MEAN PLATELET VOLUME 10.4 fl (7.4-10.4); PLATELET 156 x1000/uL (130-400); RED BLOOD CELL COUNT 2.88 mill/uL (4.7-6.1); RED CELL DISTRIBUTION WIDTH 19.3 % (11.6-14.6)
[2023-06-18 05:57] LABS: CALCIUM 8.1 mg/dL (8.7-10.4); CARBON DIOXIDE 20 mEq/L (21-32); CHLORIDE 96 mEq/L (98-107); CREATININE 3.8 mg/dL (0.6-1.3); GLUCOSE 87 mg/dL (70-105); PHOSPHORUS 3.8 mg/dL (2.5-4.9); POTASSIUM 3.6 mEq/L (3.5-5.1); SODIUM 130 mEq/L (136-145); UREA NITROGEN BLOOD 46 mg/dL (9-23)
[2023-06-18 06:46] LABS: DIFFERENTIAL COMMENT 1
[2023-06-18 08:38] LABS: BG BASE EXCESS -6.2 mmol/L (-2.0-2.0); BG CARBOXYHEMOGLOBIN 0.3 % (0.5-1.5); BG DEOXYHEMOGLOBIN 2.5 % (0.0-5.0); BG FRACTION INSPIRED OXYGEN 40; BG HCO3 ACT 19.5 mmol/L (22.0-26.0); BG OXYGEN SATURATION 97.5 % (92.0-98.5); BG OXYHEMOGLOBIN 97.2 % (94.0-97.0); BG PCO2 39.2 mmHg (35.0-45.0); BG PH 7.314 (7.350-7.450); BG SAMPLE SITE RIGHT RADIAL; BG TOTAL RESPIRATORY RATE 37 b/min; BG VENT MODE VENT - SIMV
[2023-06-18 12:21] LABS: NUCLEATED RED BLOOD CELLS 2 /100 WBC; PLATELET ESTIMATE NORMAL; SMUDGE CELLS 2+
[2023-06-18 12:22] LABS: ANISOCYTOSIS 2+
[2023-06-19] VITALS (32 sets, daily range): BP systolic 81–147; BP diastolic 58–128; PULSE 96–100; RESP 12–29; TEMP 97.4–97.6
[2023-06-19 06:42] LABS: HEMATOCRIT. 26.7 % (42.0-52.0); HEMOGLOBIN. 9.1 g/dL (14.0-18.0); MEAN CORPUSCULAR HEMOGLOBIN 31.1 pg (28.0-32.0); MEAN CORPUSCULAR HGB CONC 33.9 g/dL (31.0-37.0); MEAN CORPUSCULAR VOLUME 91.6 fL (80.0-94.0); RED BLOOD CELL COUNT 2.92 mill/uL (4.7-6.1); RED CELL DISTRIBUTION WIDTH 18.9 % (11.6-14.6)
[2023-06-19 06:46] LABS: CALCIUM 7.9 mg/dL (8.7-10.4); CARBON DIOXIDE 20 mEq/L (21-32); CHLORIDE 98 mEq/L (98-107); CREATININE 3.7 mg/dL (0.6-1.3); GLUCOSE 94 mg/dL (70-105); PHOSPHORUS 4.8 mg/dL (2.5-4.9); POTASSIUM 4.3 mEq/L (3.5-5.1); SODIUM 131 mEq/L (136-145); UREA NITROGEN BLOOD 42 mg/dL (9-23)
[2023-06-19 06:47] LABS: AMMONIA 23 uMol/L (<32)
[2023-06-19 06:57] LABS: DIFFERENTIAL COMMENT 1
[2023-06-19] MEDS: BLOOD SUGAR DIAGNOSTIC STRIP TEST SCH (08:51)
[2023-06-19 09:57] LABS: NUCLEATED RED BLOOD CELLS 4 /100 WBC
[2023-06-19 09:58] LABS: ANISOCYTOSIS 1+; PLATELET 124 x1000/uL (130-400); PLATELET ESTIMATE NORMAL; TARGET CELLS 1+
[2023-06-19] MEDS: MORPHINE SULFATE 250 MG in DEXT 5% WATER 225 ML IV PRN (14:01)
[2023-06-19] MEDS ORDERED: LEVOFLOXACIN 750MG PREMIX 150 ML IV SCH (20:00)
[2023-06-21] MEDS ORDERED: PHYTONADIONE 10MG/ML INJ SUBCUT SCH (09:00)
== END 2023-06-19 17:22 | DRG 720 ==
LOC: ER 18:35 → EDBEDREQTM 19:46 → EDBEDREQSVC 05-18 00:12 → EDBEDREQTM 05-18 00:12 → EDBEDREQ 05-18 00:12 → EDBEDREQDT 05-18 00:12 → 7EST 05-18 18:14 → MICUSO 05-19 12:00
PROVIDERS: ADMIT Internal Medicine; ATTEND Internal Medicine
PROC: 02HV33Z Insertion of Infusion Device into Superior Vena Cava, Percutaneous Approach (ICD-10-PCS; 2023-05-19)
PROC: B548ZZA Ultrasonography of Superior Vena Cava, Guidance (ICD-10-PCS; 2023-05-19)
PROC: 5A1955Z Respiratory Ventilation, Greater than 96 Consecutive Hours (ICD-10-PCS; principal; 2023-05-20)
PROC: 0BH17EZ Insertion of Endotracheal Airway into Trachea, Via Natural or Artificial Opening (ICD-10-PCS; 2023-05-20)
PROC: 04HY32Z Insertion of Monitoring Device into Lower Artery, Percutaneous Approach (ICD-10-PCS; 2023-05-21)
PROC: 30233N1 Transfusion of Nonautologous Red Blood Cells into Peripheral Vein, Percutaneous Approach (ICD-10-PCS; 2023-05-24)
PROC: 02HV33Z Insertion of Infusion Device into Superior Vena Cava, Percutaneous Approach (ICD-10-PCS; 2023-05-25)
PROC: B548ZZA Ultrasonography of Superior Vena Cava, Guidance (ICD-10-PCS; 2023-05-25)
PROC: 5A1D70Z Performance of Urinary Filtration, Intermittent, Less than 6 Hours Per Day (ICD-10-PCS; 2023-05-25)
PROC: 5A1D70Z Performance of Urinary Filtration, Intermittent, Less than 6 Hours Per Day (ICD-10-PCS; 2023-05-26)
PROC: 30233R1 Transfusion of Nonautologous Platelets into Peripheral Vein, Percutaneous Approach (ICD-10-PCS; 2023-05-28)
PROC: 5A1D70Z Performance of Urinary Filtration, Intermittent, Less than 6 Hours Per Day (ICD-10-PCS; 2023-05-28)
PROC: 5A1D70Z Performance of Urinary Filtration, Intermittent, Less than 6 Hours Per Day (ICD-10-PCS; 2023-05-30)
PROC: 5A1D70Z Performance of Urinary Filtration, Intermittent, Less than 6 Hours Per Day (ICD-10-PCS; 2023-06-01)
PROC: 5A1D70Z Performance of Urinary Filtration, Intermittent, Less than 6 Hours Per Day (ICD-10-PCS; 2023-06-03)
PROC: 5A1D70Z Performance of Urinary Filtration, Intermittent, Less than 6 Hours Per Day (ICD-10-PCS; 2023-06-05)
PROC: 4A00X4Z Measurement of Central Nervous Electrical Activity, External Approach (ICD-10-PCS; 2023-06-07)
PROC: 02HV33Z Insertion of Infusion Device into Superior Vena Cava, Percutaneous Approach (ICD-10-PCS; 2023-06-07)
PROC: B548ZZA Ultrasonography of Superior Vena Cava, Guidance (ICD-10-PCS; 2023-06-07)
PROC: 5A1D70Z Performance of Urinary Filtration, Intermittent, Less than 6 Hours Per Day (ICD-10-PCS; 2023-06-07)
PROC: 02HV33Z Insertion of Infusion Device into Superior Vena Cava, Percutaneous Approach (ICD-10-PCS; 2023-06-10)
PROC: B548ZZA Ultrasonography of Superior Vena Cava, Guidance (ICD-10-PCS; 2023-06-10)
PROC: 5A1D70Z Performance of Urinary Filtration, Intermittent, Less than 6 Hours Per Day (ICD-10-PCS; 2023-06-10)
PROC: 5A1D70Z Performance of Urinary Filtration, Intermittent, Less than 6 Hours Per Day (ICD-10-PCS; 2023-06-12)
PROC: 5A1D70Z Performance of Urinary Filtration, Intermittent, Less than 6 Hours Per Day (ICD-10-PCS; 2023-06-14)
PROC: 5A1D70Z Performance of Urinary Filtration, Intermittent, Less than 6 Hours Per Day (ICD-10-PCS; 2023-06-16)
PROC: 5A1D70Z Performance of Urinary Filtration, Intermittent, Less than 6 Hours Per Day (ICD-10-PCS; 2023-06-18)
DX: A41.50 Gram-negative sepsis, unspecified (principal); J96.00 Acute respiratory failure, unspecified whether with hypoxia or hypercapnia; N17.0 Acute kidney failure with tubular necrosis; G92.8 Other toxic encephalopathy; R65.21 Severe sepsis with septic shock; R57.0 Cardiogenic shock; B49 Unspecified mycosis; E72.20 Disorder of urea cycle metabolism, unspecified; J15.1 Pneumonia due to Pseudomonas; C79.51 Secondary malignant neoplasm of bone; I21.09 ST elevation (STEMI) myocardial infarction involving other coronary artery of anterior wall; J15.69 Pneumonia due to other Gram-negative bacteria; E87.20 Acidosis, unspecified; E86.9 Volume depletion, unspecified; B19.20 Unspecified viral hepatitis C without hepatic coma; D64.9 Anemia, unspecified; N13.30 Unspecified hydronephrosis; E83.51 Hypocalcemia; K72.90 Hepatic failure, unspecified without coma; D69.6 Thrombocytopenia, unspecified; E87.1 Hypo-osmolality and hyponatremia; Z20.822 Contact with and (suspected) exposure to COVID-19; I13.0 Hypertensive heart and chronic kidney disease with heart failure and stage 1 through stage 4 chronic kidney disease, or unspecified chronic kidney disease; I27.20 Pulmonary hypertension, unspecified; K74.60 Unspecified cirrhosis of liver; N18.9 Chronic kidney disease, unspecified; R18.8 Other ascites; R62.7 Adult failure to thrive; Z66 Do not resuscitate; M25.461 Effusion, right knee; M25.462 Effusion, left knee; R59.0 Localized enlarged lymph nodes; K76.82 Hepatic encephalopathy; E80.6 Other disorders of bilirubin metabolism; J91.8 Pleural effusion in other conditions classified elsewhere; I50.20 Unspecified systolic (congestive) heart failure; I70.263 Atherosclerosis of native arteries of extremities with gangrene, bilateral legs; I47.20 Ventricular tachycardia, unspecified; S00.431A Contusion of right ear, initial encounter; S30.0XXA Contusion of lower back and pelvis, initial encounter; Z99.2 Dependence on renal dialysis; Z79.899 Other long term (current) drug therapy; Z51.5 Encounter for palliative care; Z74.01 Bed confinement status; Z90.49 Acquired absence of other specified parts of digestive tract; Z92.21 Personal history of antineoplastic chemotherapy; Z92.3 Personal history of irradiation; Z95.828 Presence of other vascular implants and grafts; Z68.38 Body mass index [BMI] 38.0-38.9, adult; Z85.46 Personal history of malignant neoplasm of prostate; X58.XXXA Exposure to other specified factors, initial encounter; Y93.89 Activity, other specified; Y92.89 Other specified places as the place of occurrence of the external cause; Y99.8 Other external cause status
CPT/HCPCS: 36415; 36556; 36573; 36600; 71045; 71250; 74018; 74176; 76700; 76937; 80048; 80053; 80061; 80076; 80202; 80305; 81003; 82140; 82248; 82375; 82465; 82550; 82805; 82962; 83605; 83615; 83735; 84100; 84132; 84145; 84153; 84478; 84484; 85025; 85379; 85384; 86038; 86160; 86705; 86709; 86850; 86900; 86920; 87070; 87077; 87106; 87186; 87340; 87426; 87804; 90935; 93005; 93306; 93970; 94002; 94003; 94640; 94667; 95816; 97161; 99291; A6261; C1725; C1752; C9113; J0282; J0696; J1450; J1644; J1650; J1940; J1956; J2060; J2185; J2248; J2270; J2354; J2370; J2405; J2543; J2704; J2765; J3010; J3370; J3475; J3480; J3490; J7030; J7042; J7050; J7060; J7070; J7608; P9016; P9034; P9041; P9047; G0103